=== PATIENT | female | born 1945 | race Caucasian/White ===

== ENCOUNTER 2021-06-07 19:55 | Inpatient (IN) ==
[2021-06-07 20:23] LABS: Basophils # (auto) 0.03 K/uL (0-0.2); Basophils % (auto) 0.2 %; Hematocrit (blood only) 52.4 % (37-47); Hemoglobin 16.5 g/dL (12.0-16.0); Immature Granulocytes # (auto) 0.07 K/uL (0.00-0.02); Immature Granulocytes % (auto) 0.4 %; Lymphocytes # (auto) 1.34 K/uL (1.2-3.4); Lymphocytes % (auto) 8.4 %; Mean Corpuscular Hemoglobin 32.3 pg (25-34); Mean Corpuscular Hgb Conc 31.5 g/dL (32-36); Mean Corpuscular Volume 102.5 fL (80-100); Mean Platelet Volume 9.9 fL (7.4-10.4); Monocytes # (auto) 0.93 K/uL (0.11-0.59); Monocytes % (auto) 5.8 %; Neutrophils # (auto) 13.65 K/uL (1.4-6.5); Neutrophils % (auto) 85.2 %; Platelet Count 331 K/uL (130-400); RDW Coefficient of Variation 14.3 % (11.5-14.5); RDW Standard Deviation 53.8 fL (36.4-46.3); Red Blood Count 5.11 M/uL (4.2-5.4); White Blood Count 16.02 K/uL (4.8-10.8)
[2021-06-07 20:46] LABS: Albumin Globulin Ratio 1.3 (0.9-2); Albumin Level 3.9 gm/dl (3.4-5.0); BUN Creatinine Ratio 31.5 (10-20); Bilirubin,Total 0.6 mg/dl (0.2-1.0); Calcium 10.3 mg/dl (8.5-10.1); Est GFR (African American) 73.5 ml/min; Est GFR (Non-African American) 63.4 ml/min; Globulin 3.1 gm/dl (2.5-4.0); Magnesium 1.7 mg/dl (1.7-2.4); Phosphorus 3.6 mg/dl (2.5-4.9); Potassium 3.8 mmol/L (3.5-5.1)
[2021-06-07 20:48] LABS: Troponin I 0.04 ng/ml (0-0.04)
[2021-06-07] MEDS ORDERED: ALBUT/IPRATROP 3MG/0.5MG NEB 3 ML VIAL NEB STA (20:51)
[2021-06-07] MEDS ORDERED: SODIUM CHLORIDE 0.9% 500 ML IV ONE (20:51)
[2021-06-07] MEDS ORDERED: dexAMETHasone**PF** 10 MG/ML VIAL IV ONE (20:51)
[2021-06-07] MEDS ORDERED: guaiFENesin 600 MG TABCR PO STA (20:51)
--- NOTE | 2021-06-07 21:09 | XRay Report ---
XR chest 1V portable CLINICAL HISTORY: Atypical chest pain TECHNIQUE: Single frontal radiograph of the chest was obtained. Comparison: None available at the time of this dictation. FINDINGS: No lines and tubes are seen. Cardiomegaly is noted. There is suggestion of emphysematous changes. No airspace opacities are seen. No evidence of pleural effusion or pneumothorax. IMPRESSION: No acute chest disease. ACT 112: Negative or not required by law. Electronically signed by: Bunny Mccarty M.D. 06/07/2021 9:08 PM
[2021-06-07 21:29] LABS: Influenza A virus by PCR Negative (Negative); Influenza B virus by PCR Negative (Negative)
[2021-06-07] MEDS ORDERED: MAGNESIUM SULFATE / D5W 1 GM/100 ML BAG IV ONE (22:22)
--- NOTE | 2021-06-07 23:30 | Emergency Department Note ---
Impression & Plan Hypoxia, COVID-19, COPD with acute exacerbation ED Provider Note NAME: GARY COLLAZO AGE: 75 SEX: F ARRIVES VIA: Ambulance INFORMANT: Patient ED PROVIDER(S): Isauro Henriquez MD CHIEF COMPLAINT: SOB PLAN: Disposition: Admit MEDICAL DECISION MAKING: The patient is a pleasant 75-year-old woman with a past medical history of COPD who presents to the emergency department accompanied by her daughter for evaluation of worsening shortness of breath over the past couple of days with confusion that worsened today where she was found to be 50% on room air by EMS. She was initially placed on 6 L and titrated down to 4 L where she was in the mid 90s. She reports she has been using her inhalers. She reports she has had cough, congestion over the past couple of days. She is not vaccinated for COVID-19 but she denies any known COVID-19 exposures. She has had some loose stool. She denies nausea or vomiting. She has had decreased appetite however. She complains of dry mouth. On arrival the patient is fatigued appearing, cachectic but in no acute distress, afebrile with heart rate in the 100s and vital signs otherwise stable. Her O2 saturation will decline to the mid 80s on room air. She was placed back on nasal cannula. She appears clinically dry. She has diminished breath sounds bilaterally with underlying wheeze. EKG without overt acute ischemia. Chest x-ray negative for acute cardiopulmonary process. WBC 16K, nonspecific. H/H 16.5/52.4 without prior values for comparison but in the setting of the patient's COPD and so may reflect a component of chronic hypoxia. Platelets within normal limits. Chemistry without metabolic acidosis. Carbon is 36 suggestive of component of chronic hypercapnia. BUN/Creatinine> 30 consistent with patient's clinically dry appearance. Troponin 0.04, within normal limits. BNP 500 prior values for comparison. COVID-19 RNA, NAAT test was positive. Influenza PCR was negative. Procalcitonin was not significantly elevated at 0.08. Given the patient's hypoxia in the setting of suspected early acute COVID-19 infection will to proceed with admission Case was discussed with Dr. Marvin, [facility] hospitalist, who will evaluate the patient for admission. Triage Nursing notes reviewed and agree them. Prior medical records reviewed Vital Signs: reviewed and remarkable for hypoxia. Differential diagnosis: Reactive airway disease, pneumonia, pneumothorax, COPD, CHF, infections, cardiac ischemia, pulmonary embolism, musculoskeletal, gastrointestinal, as well as other pathologies. ER treatment provided: See below. Diagnostics interpreted by me: ECG: Normal sinus rhythm, 99 bpm, no ectopy, nonspecific ST and T wave abnormality, no overt ST elevation, QTC 444, QRS 82. Cardiac Monitoring: An order for continuous cardiac monitoring was placed and demonstrated normal sinus rhythm, 99 bpm, no ectopy. Laboratory studies: See below Imaging studies: See below Consultation(s): Case was discussed with Dr. Marvin, [facility] hospitalist, who will evaluate the patient for admission. HPI: The patient is a pleasant 75-year-old woman with a past medical history of COPD who presents to the emergency department accompanied by her daughter for evaluation of worsening shortness of breath over the past couple of days with confusion that worsened today where she was found to be 50% on room air by EMS. She was initially placed on 6 L and titrated down to 4 L where she was in the mid 90s. She reports she has been using her inhalers. She reports she has had cough, congestion over the past couple of days. She is not vaccinated for COVID-19 but she denies any known COVID-19 exposures. She has had some loose stool. She denies nausea or vomiting. She has had decreased appetite however. She complains of dry mouth. ROS: See above HPI for pertinent positives & negatives. A total of 10 systems reviewed and were otherwise negative. PAST MEDICAL HISTORY:See Below PAST SURGICAL HISTORY:See Below FAMILY HISTORY:See Below SOCIAL HISTORY:See Below HOME MEDICATIONS:See Below ALLERGIES:See Below VITALS:See Below PHYSICAL EXAMINATION: GENERAL: Awake, alert, fatigued/cachectic-appearing, in no distress HENT: Normocephalic, atraumatic. Oropharynx with dry mucous membranes and otherwise unremarkable. EYES: Normal conjunctiva. Sclera non-icteric. NECK: Supple. No nuchal rigidity. FROM. No JVD. RESPIRATORY: Diminished breath sounds bilaterally with underlying wheeze. CARDIAC: Regular rate, normal rhythm. Extremities warm and well perfused. Pulses equal. ABDOMEN: Soft, non-distended. No tenderness to palpation. No rebound or guarding. No masses. RECTAL: Deferred. MUSCULOSKELETAL: Chest examination reveals no tenderness. The back is symmetrical on inspection without obvious abnormality. There is no CVA tenderness to palpation. No joint edema. LOWER EXTREMITIES: Calves are equal size bilaterally and non-tender. No edema. No discoloration. NEURO: Normal sensorium. No sensory or motor deficits noted. SKIN: No rash or jaundice noted. Isauro Henriquez MD Past Med/Surg History Medical History COPD (chronic obstructive pulmonary disease) Hypertension Restless leg syndrome Family History Other Family history non-contributory Social History Smoking Status: Current every day smoker Allergies Allergies Allergy/AdvReac Type Severity Reaction Status Date / Time No Known Allergies Allergy Verified 06/07/21 21:25 Home Meds Home Medications Medication Instructions Recorded Confirmed albuterol sulfate 90 mcg/actuation 2 puff INHALATION DIRECTED PRN 06/07/21 06/07/21 aerosol inhaler (Ventolin HFA) aspirin 81 mg chewable tablet 81 mg PO DAILY 06/07/21 06/07/21 calcium carbonate 200 mg calcium 200 - 400 mg PO DIRECTED PRN 06/07/21 06/07/21 (500 mg) chewable tablet (Tums) cholecalciferol (vitamin D3) 25 1,000 mcg PO DAILY 06/07/21 06/07/21 mcg (1,000 unit) capsule (Vitamin D3) metoprolol succinate 50 mg 50 mg PO DAILY 06/07/21 06/07/21 tablet,extended release 24 hr tiotropium bromide 2.5 2 puff INHALATION DAILY 06/07/21 06/07/21 mcg/actuation mist for inhalation (Spiriva Respimat) Results & Data (ED) Vital Signs Vital Signs - 24 hr 06/07/21 20:02 06/07/21 20:12 06/07/21 20:34 Temperature 36.9 C 36.9 C Temperature Source Oral Oral Pulse Rate 99 H Pulse Rate [Right Finger] 100 H Pulse Rhythm Regular Pulse Rhythm [Right Finger] Regular Pulse Strength Normal Pulse Strength [Right Finger] Normal Respiratory Rate 20 20 Respiratory Effort / Characteristics Spontaneous Spontaneous Respiratory Depth Normal Normal Respiratory Pattern Regular Regular Blood Pressure 157/95 H Blood Pressure [Right Arm] 157/95 H Blood Pressure Mean 115 Blood Pressure Mean [Right Arm] 115 Blood Pressure Position Sitting Blood Pressure Position [Right Arm] Sitting Pulse Oximetry 97 88 L 93 Oxygen Delivery Method Nasal Cannula Room Air Room Air Oxygen Flow Rate 2 Sepsis Recent Fever Within 48 Hours No Sepsis New/Unexplained Change in Mental Status No Sepsis Action Taken by Nursing No Action Required 06/07/21 22:00 06/08/21 00:00 Temperature Temperature Source Pulse Rate Pulse Rate [Right Finger] 99 H 98 H Pulse Rhythm Pulse Rhythm [Right Finger] Regular Regular Pulse Strength Pulse Strength [Right Finger] Normal Normal Respiratory Rate 22 21 Respiratory Effort / Characteristics Non-Labored Non-Labored Spontaneous Respiratory Depth Normal Normal Respiratory Pattern Blood Pressure Blood Pressure [Right Arm] Blood Pressure Mean Blood Pressure Mean [Right Arm] Blood Pressure Position Blood Pressure Position [Right Arm] Pulse Oximetry 93 96 Oxygen Delivery Method Nasal Cannula Nasal Cannula Oxygen Flow Rate 2 2 Sepsis Recent Fever Within 48 Hours Sepsis New/Unexplained Change in Mental Status Sepsis Action Taken by Nursing Laboratory Data Attestation: I reviewed the patient's lab results. Result diagrams: 06/07/21 20:10 06/07/21 20:10 Lab Results 06/07/21 06/07/21 06/07/21 Range/Units 20:10 20:10 20:10 WBC 16.02 H (4.8-10.8) K/uL RBC 5.11 (4.2-5.4) M/uL Hgb 16.5 H (12.0-16.0) g/dL Hct 52.4 H (37-47) % MCV 102.5 H (80-100) fL MCH 32.3 (25-34) pg MCHC 31.5 L (32-36) g/dL RDW Std Deviation 53.8 H (36.4-46.3) fL RDW Coeff of Adriana 14.3 (11.5-14.5) % Plt Count 331 (130-400) K/uL MPV 9.9 (7.4-10.4) fL Immature Gran % (Auto) 0.4 % Neut % (Auto) 85.2 % Lymph % (Auto) 8.4 % [place] % (Auto) 5.8 % Eos % (Auto) 0.0 % Baso % (Auto) 0.2 % Neut # (Auto) 13.65 H (1.4-6.5) K/uL Lymph # (Auto) 1.34 (1.2-3.4) K/uL [place] # (Auto) 0.93 H (0.11-0.59) K/uL Eos # (Auto) 0.00 (0-0.5) K/uL Baso # (Auto) 0.03 (0-0.2) K/uL Immature Gran # (Auto) 0.07 H (0.00-0.02) K/uL Sodium 142 (136-145) mmol/L Potassium 3.8 (3.5-5.1) mmol/L Chloride 101 (98-107) mmol/L Carbon Dioxide 36 H (21-32) mmol/L Anion Gap 5 (3-11) BUN 28 H (6-23) mg/dl Creatinine 0.89 (0.6-1.2) mg/dl Est Cr Clr Drug Dosing 36.0 ml/min Est GFR ( Amer) 73.5 ml/min Est GFR (Non-Af Amer) 63.4 ml/min BUN/Creatinine Ratio 31.5 H (10-20) Glucose 202 H (70-99(Fasting)) mg/dl Calcium 10.3 H (8.5-10.1) mg/dl Phosphorus 3.6 (2.5-4.9) mg/dl Magnesium 1.7 (1.7-2.4) mg/dl Total Bilirubin 0.6 (0.2-1.0) mg/dl AST 24 (13-39) U/L ALT 21 (7-52) U/L Alkaline Phosphatase 70 (34-104) U/L Troponin I 0.04 (0-0.04) ng/ml B-Natriuretic Peptide (0-100) pg/ml Total Protein 7.0 (6.0-8.3) gm/dl Albumin 3.9 (3.4-5.0) gm/dl Globulin 3.1 (2.5-4.0) gm/dl Albumin/Globulin Ratio 1.3 (0.9-2) Lipase 17 (11-82) U/L Procalcitonin (0-0.5) ng/ml Influ A Molecular Assay Negative (Negative) Influ B Molecular Assay Negative (Negative) SARS-CoV-2, RNA, NAAT (NEGATIVE) 02/06/07/21 06/07/21 Range/Units 20:10 20:40 21:19 WBC (4.8-10.8) K/uL RBC (4.2-5.4) M/uL Hgb (12.0-16.0) g/dL Hct (37-47) % MCV (80-100) fL MCH (25-34) pg MCHC (32-36) g/dL RDW Std Deviation (36.4-46.3) fL RDW Coeff of Adriana (11.5-14.5) % Plt Count (130-400) K/uL MPV (7.4-10.4) fL Immature Gran % (Auto) % Neut % (Auto) % Lymph % (Auto) % [place] % (Auto) % Eos % (Auto) % Baso % (Auto) % Neut # (Auto) (1.4-6.5) K/uL Lymph # (Auto) (1.2-3.4) K/uL [place] # (Auto) (0.11-0.59) K/uL Eos # (Auto) (0-0.5) K/uL Baso # (Auto) (0-0.2) K/uL Immature Gran # (Auto) (0.00-0.02) K/uL Sodium (136-145) mmol/L Potassium (3.5-5.1) mmol/L Chloride (98-107) mmol/L Carbon Dioxide (21-32) mmol/L Anion Gap (3-11) BUN (6-23) mg/dl Creatinine (0.6-1.2) mg/dl Est Cr Clr Drug Dosing ml/min Est GFR ( Amer) ml/min Est GFR (Non-Af Amer) ml/min BUN/Creatinine Ratio (10-20) Glucose (70-99(Fasting)) mg/dl Calcium (8.5-10.1) mg/dl Phosphorus (2.5-4.9) mg/dl Magnesium (1.7-2.4) mg/dl Total Bilirubin (0.2-1.0) mg/dl AST (13-39) U/L ALT (7-52) U/L Alkaline Phosphatase (34-104) U/L Troponin I (0-0.04) ng/ml B-Natriuretic Peptide 518 H (0-100) pg/ml Total Protein (6.0-8.3) gm/dl Albumin (3.4-5.0) gm/dl Globulin (2.5-4.0) gm/dl Albumin/Globulin Ratio (0.9-2) Lipase (11-82) U/L Procalcitonin 0.08 (0-0.5) ng/ml Influ A Molecular Assay (Negative) Influ B Molecular Assay (Negative) SARS-CoV-2, RNA, NAAT POSITIVE A* (NEGATIVE) Administered Medications Remdesivir 200 mg/ Sodium (Chloride) 250 mls @ 125 mls/hr IV ONE STA; Protocol Stop: 06/08/21 01:50 Last Admin: 06/08/21 00:18 Dose: 125 mls/hr Documented by: [id number] Discontinued Medications Albuterol (Albut/Ipratrop 3mg/0.5mg Neb 3 Ml Vial) 3 ml NEB NOW STA; Protocol Stop: 06/07/21 20:52 Last Admin: 06/07/21 21:05 Dose: 3 ml Documented by: [id number] Dexamethasone Sodium Phosphate (DexamethasonePf 10 Mg/Ml Vial) 10 mg IV NOW ONE Stop: 06/07/21 20:52 Last Admin: 06/07/21 21:05 Dose: 10 mg Documented by: [id number] Guaifenesin (Guaifenesin 600 Mg Tabcr) 600 mg PO NOW STA Stop: 06/07/21 20:52 Last Admin: 06/07/21 21:05 Dose: 600 mg Documented by: [id number] Sodium Chloride (Nss) 500 mls @ 999 mls/hr IV .Q31M ONE Stop: 06/07/21 21:21 Last Infusion: 06/07/21 21:45 Dose: 0 mls/hr Documented by: [id number] Admin: 06/07/21 21:10 Dose: 999 mls/hr Documented by: [id number] Magnesium Sulfate/Dextrose (Magnesium Sulfate / D5w) 1 gm in 100 mls @ 50 mls/hr IV ONE ONE Stop: 06/08/21 00:21 Last Admin: 06/07/21 22:52 Dose: Not Given Documented by: [id number] Imaging Data Radiologist's Impression: Chest X-Ray 06/07/21 20:12 XR chest 1V portable CLINICAL HISTORY: Atypical chest pain TECHNIQUE: Single frontal radiograph of the chest was obtained. Comparison: None available at the time of this dictation. FINDINGS: No lines and tubes are seen. Cardiomegaly is noted. There is suggestion of emphysematous changes. No airspace opacities are seen. No evidence of pleural effusion or pneumothorax. IMPRESSION: No acute chest disease. ACT 112: Negative or not required by law. Electronically signed by: Bunny Mccarty M.D. 06/07/2021 9:08 PM Discharge Plan Visit Data Chief Complaint: Shortness of Breath/Dyspnea Stated Complaint: SOB ED Provider: Isauro Henriquez Discharge Problem: Hypoxia, COVID-19, COPD with acute exacerbation Forms Stand Alone Forms: My [facility] [place] Prescriptions Prescriptions: No Action calcium carbonate [Tums] 200 mg calcium (500 mg) Tablet,Chewable 200 - 400 mg PO DIRECTED PRN (Reason: HEARTBURN/INDIGESTION) RF: 0 albuterol sulfate [Ventolin HFA] 90 mcg/actuation Hfa Aerosol Inhaler 2 puff INHALATION DIRECTED PRN (Reason: Shortness Of Breath Or Wheezing) RF: 0 cholecalciferol (vitamin D3) [Vitamin D3] 25 mcg (1,000 unit) Capsule 1,000 mcg PO DAILY RF: 0 metoprolol succinate 50 mg tablet extended release 24 hr 50 mg PO DAILY RF: 0 aspirin 81 mg tablet,chewable 81 mg PO DAILY RF: 0 Spiriva Respimat 2.5 mcg/actuation mist 2 puff INHALATION DAILY RF: 0 Referrals Referrals: Mima Hebert [Primary Care Provider] -
[2021-06-07] MEDS ORDERED: REMDESIVIR 200 MG in SODIUM CHLORIDE 0.9% 210 ML IV STA (23:51)
--- NOTE | 2021-06-07 23:52 | History & Physical Report ---
Date of Service June 07, 2021 Assessment & Plan (1) COVID-19: Plan: COVID-19 infection/COPD exacerbation with hypoxia- Patient noted to be in the 50s on room air by EMS at home, and in the mid 80s in the ED Received dexamethasone 10 mg IV from the ED Continue dexamethasone 6 mg IV daily Remdesivir IV per protocol Duonebs every 4 hours while awake and every 2 hours when necessary. Vitamin D 5000 international units p.o. daily Azithro azithromycin 500 mg IV daily (2) COPD with acute exacerbation: Plan: See above (3) Hypoxia: Plan: Nasal cannula oxygen, titrate to keep pulse ox 92-94% (4) Hypertension: Plan: Continue metoprolol succinate (5) Encephalopathy: Plan: Patient reportedly appears confused, per her daughter. May be directly related to COVID-19 and/or hypoxia of head negative (6) Tobacco use disorder: Plan: Tobacco cessation counseling (7) Restless leg syndrome: Plan: Patient reports that she use Aspercreme at home Do a trial of clonazepam 0.5 mg due to its rapidity of onset Check lower extremity arterial Dopplers to assess for possible PAD/thromboangiitis obliterans Tobacco cessation recommended (8) Hyperglycemia: Plan: Glucose 202 upon admission Not on any diabetic medications Check hemoglobin A1c [place] Accu-Cheks before meals and at bedtime with NovoLog coverage per scale History of Present Illness Chief Complaint: The patient presents to the emergency department with complaint of worsening shortness of breath and nausea over the past several days, and her daughter notices worsening confusion during that time as well. She was noted to be 50% on room air when initially assessed by EMS at home Primary Care Provider: Mima Hebert The patient is a 75-year-old female with a past medical history including COPD, restless leg syndrome and hypertension, who presents with symptoms as noted above. She continues to smoke about 1 pack daily. She reports that her less restless legs is bothering her significantly more at this time as well Evaluation in the emergency department revealed a pulse ox in the mid 80s, improved to 93% on 2 L nasal cannula. Chest x-ray was normal. COVID-19 testing was positive. Patient received from the ED the following: Dexamethasone 10 mg IV, NSS 500 mL bolus, guaifenesin 600 mg p.o., DuoNeb x1, and magnesium 1 g IV. Allergies Allergy/AdvReac Type Severity Reaction Status Date / Time No Known Allergies Allergy Verified 06/07/21 21:25 Home Medications Medication Instructions Recorded Confirmed Type albuterol sulfate 90 mcg/actuation 2 puff INHALATION DIRECTED PRN 06/07/21 06/07/21 History aerosol inhaler (Ventolin HFA) aspirin 81 mg chewable tablet 81 mg PO DAILY 06/07/21 06/07/21 History calcium carbonate 200 mg calcium 200 - 400 mg PO DIRECTED PRN 06/07/21 06/07/21 History (500 mg) chewable tablet (Tums) cholecalciferol (vitamin D3) 25 1,000 mcg PO DAILY 06/07/21 06/07/21 History mcg (1,000 unit) capsule (Vitamin D3) metoprolol succinate 50 mg 50 mg PO DAILY 06/07/21 06/07/21 History tablet,extended release 24 hr tiotropium bromide 2.5 2 puff INHALATION DAILY 06/07/21 06/07/21 History mcg/actuation mist for inhalation (Spiriva Respimat) Past Med/Surg History Medical History (Updated 06/08/21 @ 01:41 by Thony Marvin MD) COPD (chronic obstructive pulmonary disease) Hypertension Restless leg syndrome Tobacco use disorder Family History (Updated 06/07/21 @ 23:29 by Isauro Henriquez MD) Other Family history non-contributory Social History (Updated 06/07/21 @ 23:29 by Isauro Henriquez MD) Smoking Status: Current every day smoker Review of Systems Review of Systems: The patient denies chest pain, palpitations, lower extremity swelling, fevers, chills, sweats, vomiting, diarrhea , constipation, abdominal pain, pelvic pain, blood in urine or stool, dysuria, urinary frequency or urgency, lightheadedness, dizziness, headache, loss of consciousness, rash, abnormal bruising or bleeding, imbalance, focal or generalized weakness, numbness or tingling in arms, gener alized arthralgias or myalgias, back or neck pain, or night sweats. The review of systems is otherwise negative other than for that already noted above, and at least 10 systems have been reviewed. Physical Exam Physical Exam: The patient is awake, alert and oriented 3, well developed and well nourished, normocephalic and atraumatic, lying in bed and in no acute distress. HEENT--PERRL, EOMI, mucous membranes and oropharynx dry. Neck--supple. No JVD. No bruits. Thyroid normal, trachea midline, no bryan opathy. Heart--normal S1 and S2. No murmurs, rubs or gallops. Lungs--coarse breath sounds bilaterally with scattered wheezes. No respiratory distress, no accessory muscle use. Abdomen--normal bowel sounds and soft. Nontender. Nondistended, no hernias or masses, no organomegaly. Extremities--no cyanosis or clubbing. No edema. There are good distal pulses b/l. Dermatologic--normal skin turgor, normal color, no abnormal lymph nodes, no rash. Neurologic--cranial nerves II through XII grossly intact. Rheumatologic--normal range of motion. Psychiatric--normal affect. Results & Data Results & Data ([facility]) Vital Signs (Past 12 Hours) Vital Signs Temp Pulse Pulse Resp BP BP Pulse Ox 06/07/21 22:00 99 H 22 93 06/07/21 20:34 36.9 C 100 H 20 157/95 H 93 06/07/21 20:02 36.9 C 99 H 20 157/95 H 97 Laboratory Results Laboratory Results WBC 16.02 K/uL (4.8-10.8) H 06/07/21 20:10 RBC 5.11 M/uL (4.2-5.4) 06/07/21 20:10 Hgb 16.5 g/dL (12.0-16.0) H 06/07/21 20:10 Hct 52.4 % (37-47) H 06/07/21 20:10 MCV 102.5 fL (80-100) H 06/07/21 20:10 MCH 32.3 pg (25-34) 06/07/21 20:10 MCHC 31.5 g/dL (32-36) L 06/07/21 20:10 RDW Std Deviation 53.8 fL (36.4-46.3) H 06/07/21 20:10 RDW Coeff of Adriana 14.3 % (11.5-14.5) 06/07/21 20:10 Plt Count 331 K/uL (130-400) 06/07/21 20:10 MPV 9.9 fL (7.4-10.4) 06/07/21 20:10 Immature Gran % (Auto) 0.4 % 06/07/21 20:10 Neut % (Auto) 85.2 % 06/07/21 20:10 Lymph % (Auto) 8.4 % 06/07/21 20:10 [place] % (Auto) 5.8 % 06/07/21 20:10 Eos % (Auto) 0.0 % 06/07/21 20:10 Baso % (Auto) 0.2 % 06/07/21 20:10 Neut # (Auto) 13.65 K/uL (1.4-6.5) H 06/07/21 20:10 Lymph # (Auto) 1.34 K/uL (1.2-3.4) 06/07/21 20:10 [place] # (Auto) 0.93 K/uL (0.11-0.59) H 06/07/21 20:10 Eos # (Auto) 0.00 K/uL (0-0.5) 06/07/21 20:10 Baso # (Auto) 0.03 K/uL (0-0.2) 06/07/21 20:10 Immature Gran # (Auto) 0.07 K/uL (0.00-0.02) H 06/07/21 20:10 Sodium 142 mmol/L (136-145) 06/07/21 20:10 Potassium 3.8 mmol/L (3.5-5.1) 06/07/21 20:10 Chloride 101 mmol/L (98-107) 06/07/21 20:10 Carbon Dioxide 36 mmol/L (21-32) H 06/07/21 20:10 Anion Gap 5 (3-11) 06/07/21 20:10 BUN 28 mg/dl (6-23) H 06/07/21 20:10 Creatinine 0.89 mg/dl (0.6-1.2) 06/07/21 20:10 Est Cr Clr Drug Dosing 36.0 ml/min 06/07/21 20:10 Est GFR ( Amer) 73.5 ml/min 06/07/21 20:10 Est GFR (Non-Af Amer) 63.4 ml/min 06/07/21 20:10 BUN/Creatinine Ratio 31.5 (10-20) H 06/07/21 20:10 Glucose 202 mg/dl (70-99(Fasting)) H 06/07/21 20:10 Calcium 10.3 mg/dl (8.5-10.1) H 06/07/21 20:10 Phosphorus 3.6 mg/dl (2.5-4.9) 06/07/21 20:10 Magnesium 1.7 mg/dl (1.7-2.4) 06/07/21 20:10 Total Bilirubin 0.6 mg/dl (0.2-1.0) 06/07/21 20:10 AST 24 U/L (13-39) 06/07/21 20:10 ALT 21 U/L (7-52) 06/07/21 20:10 Alkaline Phosphatase 70 U/L (34-104) 06/07/21 20:10 Troponin I 0.04 ng/ml (0-0.04) 06/07/21 20:10 B-Natriuretic Peptide 518 pg/ml (0-100) H 06/07/21 21:19 Total Protein 7.0 gm/dl (6.0-8.3) 06/07/21 20:10 Albumin 3.9 gm/dl (3.4-5.0) 06/07/21 20:10 Globulin 3.1 gm/dl (2.5-4.0) 06/07/21 20:10 Albumin/Globulin Ratio 1.3 (0.9-2) 06/07/21 20:10 Lipase 17 U/L (11-82) 06/07/21 20:10 Procalcitonin 0.08 ng/ml (0-0.5) 06/07/21 20:10 Influ A Molecular Assay Negative (Negative) 06/07/21 20:10 Influ B Molecular Assay Negative (Negative) 06/07/21 20:10 SARS-CoV-2, RNA, NAAT POSITIVE (NEGATIVE) A* 06/07/21 20:40 Impressions Chest X-Ray 06/07/21 20:12 XR chest 1V portable CLINICAL HISTORY: Atypical chest pain TECHNIQUE: Single frontal radiograph of the chest was obtained. Comparison: None available at the time of this dictation. FINDINGS: No lines and tubes are seen. Cardiomegaly is noted. There is suggestion of emphysematous changes. No airspace opacities are seen. No evidence of pleural effusion or pneumothorax. IMPRESSION: No acute chest disease. ACT 112: Negative or not required by law. Electronically signed by: Bunny Mccarty M.D. 06/07/2021 9:08 PM Diagnostic Findings [facility] Patient: GARY COLLAZO (Female) : 45 Status: ER Date: 06/07/21 23:12 Room #: History: ams covid + best images, pt confused unable to hold still Slices: 66 Priors: Tech: Caity Jade @ [phone] Exams: CT HEAD Contrast: Accession Numbers: [id number] Referring Physician: REFERRED SELF Preliminary Findings Only See Final Report For Complete Findings CT HEAD: No acute intracranial hemorrhage, extra-axial fluid collection or mass-effect. No CT evidence of acute territorial infarct. Patchy areas of hypoattenuation throughout the supratentorial white matter are nonspecific, but often seen in the setting of chronic microvascular ischemic disease. Air-fluid level in the left maxillary sinus, which could be correlated for possible acute sinusitis. Radiologist: Ashley Gusman M.D. Study ready at 23:16 and initial results transmitted at 23:27 *This report constitutes a preliminary interpretation only. Non-acute findings felt to be unrelated to the clinical presentation may not be discussed in this report. The study will be interpreted and a final report will be generated by the local Radiologist the following shift. To reach the hospital radiology department call [phone]. If a discrepancy is found between the preliminary and final interpretations of this study, please notify us via our Client Portal at [email or web address], under QA Exams. You can also fax this report with a description of the discrepancy, or include the final report, to our daytime fax number [phone]. If faxing, please indicate the severity of discrepancy using one of the following categories: [ ] 1 - Agree/Informational [ ] 2 - Unlikely to Affect Management [ ] 3 - Possible Eventual Change of Management [ ] 4 - Probable Immediate Change of Management For all other patient related information, please fax us at [phone]. [id number] Code Status & VTE Plan Code Status Full code VTE Prophylaxis Plan VTE Prophylaxis will be ordered: Yes PG Care Time/CCT Total # of Minutes Spent Total Time Spent with Patient: Total time spent is greater than 50% in coordination of care (as documented) at patient's floor/unit and/or counseling patient: Coding Level of Care Code 74645 Initial Inpt Care Lvl 3 Diagnoses Restless leg syndrome G25.81 Hypertension I10 Encephalopathy G93.40 COPD with acute exacerbation J44.1 COVID-19 U07.1 Hypoxia R09.02 Tobacco use disorder F17.200 Hyperglycemia R73.9
[2021-06-08] MEDS ORDERED: clonazePAM 0.5 MG TAB PO STA (01:21)
[2021-06-08] MEDS ORDERED: GLUCOSE 40% GEL 15 GM TUBE PO PRN (02:28)
[2021-06-08] MEDS ORDERED: GLUCOSE 10 TABS/TUBE PO PRN (02:28)
[2021-06-08] MEDS ORDERED: ACETAMINOPHEN 325 MG TAB PO PRN (02:28)
[2021-06-08] MEDS ORDERED: DEXTROSE 50% 50 ML SYRINGE IV PRN (02:28)
[2021-06-08] MEDS ORDERED: GLUCAGON FOR INJ 1 MG VIAL SQ PRN (02:28)
[2021-06-08] MEDS ORDERED: CARBOHYDRATES FOR HYPOGLYCEMIA PO PRN (02:28)
[2021-06-08] MEDS ORDERED: ONDANSETRON INJ 2 MG/ML 2 ML VIAL IV PRN (02:28)
[2021-06-08 05:56] LABS: Basophils # (auto) 0.04 K/uL (0-0.2); Basophils % (auto) 0.3 %; Hematocrit (blood only) 47.4 % (37-47); Hemoglobin 14.3 g/dL (12.0-16.0); Immature Granulocytes # (auto) 0.09 K/uL (0.00-0.02); Immature Granulocytes % (auto) 0.7 %; Lymphocytes % (auto) 5.2 %; Mean Corpuscular Hemoglobin 31.2 pg (25-34); Mean Corpuscular Hgb Conc 30.2 g/dL (32-36); Mean Corpuscular Volume 103.5 fL (80-100); Mean Platelet Volume 9.6 fL (7.4-10.4); Monocytes # (auto) 0.31 K/uL (0.11-0.59); Monocytes % (auto) 2.3 %; Neutrophils # (auto) 12.35 K/uL (1.4-6.5); Neutrophils % (auto) 91.5 %; Platelet Count 319 K/uL (130-400); RDW Coefficient of Variation 14.2 % (11.5-14.5); RDW Standard Deviation 53.9 fL (36.4-46.3); Red Blood Count 4.58 M/uL (4.2-5.4); White Blood Count 13.49 K/uL (4.8-10.8)
[2021-06-08 06:18] LABS: Troponin I < 0.03 ng/ml (0-0.04)
[2021-06-08 06:20] LABS: Alanine Aminotransferase 24 U/L (7-52); Albumin Globulin Ratio 1.3 (0.9-2); Albumin Level 3.3 gm/dl (3.4-5.0); Alkaline Phosphatase 62 U/L (34-104); Anion Gap 4 (3-11); Aspartate Aminotransferase 31 U/L (13-39); BUN Creatinine Ratio 28.2 (10-20); Bilirubin,Total 0.5 mg/dl (0.2-1.0); Blood Urea Nitrogen 22 mg/dl (6-23); Calcium 8.5 mg/dl (8.5-10.1); Carbon Dioxide 34 mmol/L (21-32); Chloride 105 mmol/L (98-107); Est GFR (African American) 86.2 ml/min; Est GFR (Non-African American) 74.4 ml/min; Globulin 2.6 gm/dl (2.5-4.0); Glucose 148 mg/dl (70-99(Fasting)); Magnesium 1.7 mg/dl (1.7-2.4); Potassium 4.5 mmol/L (3.5-5.1); Sodium 143 mmol/L (136-145); Total Protein 5.9 gm/dl (6.0-8.3)
--- NOTE | 2021-06-08 07:17 | CT Scan Report ---
HEAD CT NONCONTRAST CT DOSE: 749.40 mGy.cm HISTORY: Altered mental status. TECHNIQUE: Multiaxial CT images of the head were performed without the use of intravenous contrast. A utomated exposure control was utilized for this study. A dose lowering technique was utilized adheri ng to the principles of ALARA. Comparison: None. Findings: Fluid level within the left maxillary sinus resulting in partial opacification. There is mi ld mucosal thickening within the left ethmoid air cells. Motion artifact. The calvarium and skull bas e are intact. There is no mass, hematoma, midline shift, acute infarct. White matter hypodensity is n onspecific but suggestive of microvascular ischemic change. The ventricles and sulci demonstrate mild age-related involutional changes. 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 Impression: No acute intracranial abnormality. Atrophy and microvascular ischemic changes. Acute left maxillary s inusitis. ACT 112: Negative or not required by law. Electronically signed by: Vaughn Phan M.D. 06/08/2021 7:15 AM
[2021-06-08] MEDS: ALBUT/IPRATROP 3MG/0.5MG NEB 3 ML VIAL NEB SCH ×2 (07:25→10:42)
[2021-06-08 07:31] LABS: Estimated Average Glucose 126 mg/dl
--- NOTE | 2021-06-08 07:51 | Ultrasound Report ---
US arterial duplex LE RT CLINICAL HISTORY: Right lower extremity pain. COMPARISON STUDY: None. FINDINGS: The ankle brachial indices were not performed due to the portable study. Scattered calcifie d plaque seen throughout the right lower extremity arterial system. Normal biphasic waveforms and alley ocities seen within the right common femoral and proximal to mid superficial femoral arteries. Elevat ed peak velocity of 216 cm/s within the distal right superficial femoral artery likely secondary to t he calcified plaque with associated monophasic waveforms. Distal to this site the popliteal and calf arteries demonstrate monophasic but normal velocity waveforms. No evidence for arterial occlusion. IMPRESSION: 1. Focal area of hemodynamically significant stenosis seen within the distal right superficial femora l artery. 2. No evidence for arterial occlusion within the right lower extremity. ACT 112: Negative or not required by law. Electronically signed by: Vaughn Phan M.D. 06/08/2021 7:49 AM
[2021-06-08] MEDS: INSULIN ASPART PER UNIT SC SCH ×4 (08:43→20:04)
[2021-06-08] MEDS: guaiFENesin 600 MG TABCR PO SCH ×2 (09:04→20:03)
[2021-06-08] MEDS: ASPIRIN 81 MG ECTAB PO SCH (09:05)
[2021-06-08] MEDS: CHOLECALCIFEROL 5,000 UNITS 125 MCG TAB PO SCH (09:05)
[2021-06-08] MEDS: AZITHROMYCIN 500 MG in DEXTROSE 5% 250 ML IV SCH ×2 (09:05→11:49)
[2021-06-08] MEDS: METOPROLOL SUCC 50MG EXT REL TAB PO SCH (09:05)
[2021-06-08] MEDS: dexAMETHasone 6 MG in SYRINGE 0 ML IV SCH (09:06)
[2021-06-08] MEDS ORDERED: MAGNESIUM SULFATE / D5W 1 GM/100 ML BAG IV ONE (10:17)
[2021-06-08] MEDS ORDERED: FUROSEMIDE INJ 20 MG/2 ML VIAL IV ONE (10:50)
--- NOTE | 2021-06-08 11:12 | Hospitalist Progress Note ---
Date of Service June 08, 2021 Assessment & Plan (1) COVID-19: Plan: Attending: Dr. Vivas Impression: 75-year-old female with a history of tobacco abuse since teenage years. Patient lives alone and is independent with ADLs. She is nonvaccinated. Patient developed sore throat and cough approximately 2 weeks ago. Over the last several days she has developed a productive cough with green sputum. Family is unaware of any fever or rigors. Patient did have chills at home. Patient was brought into the emergency department and found to be hypoxic. She was started empirically on remdesivir, dexamethasone and supplemental oxygen. Currently she is in isolation for COVID-19. Recommendations: COVID-19: * Day #2 dexamethasone * Day #2 remdesivir * Check CRP and ferritin levels for inflammatory markers * Start patient on enoxaparin 40 mg subcu daily (GFR 74.4) * Check ABG (serum carbon dioxide 34 mmol/L)/we will also check VBG tomorrow with a.m. labs * Will give Lasix 20 mg IV x1 (maintain negative fluid balance) proBNP 518 * Patient was symptoms for approximate last 2 weeks. * Continue titrate supplemental oxygen to maintain SaO2 between 88 and 92% * Patient is unvaccinated * Patient would not desire to be intubated or have tracheostomy tube placed. Changed to DNR/DNI no resuscitation after discussion with sister and LEI Hardwick. (2) Hypomagnesemia: Plan: Patient's magnesium level is 1.7 on admission. She received 1 g of magnesium sulfate IV Repeat magnesium this morning is also 1.7. We will give an additional 1 g of magnesium sulfate and follow daily labs Other electrolytes are balanced (3) Encephalopathy: Plan: Patient received clonazepam at 1:20 AM Continues to remain somewhat lethargic CT head is negative Able to maintain airway Continue to monitor No neurological deficits other than lethargy (4) Hypoxia: Plan: Secondary to COPD exacerbation and COVID-19 Continue with supplemental oxygen to maintain SaO2 between 88 and 92% Continue to treat for COVID-19 Empiric azithromycin for COPD exacerbation (5) COPD (chronic obstructive pulmonary disease): Plan: Lifelong adult smoker (current everyday smoker) No evidence of pulmonary function testing Patient is prescribed Spiriva Respimat 2 puffs daily as well as albuterol as needed as an outpatient Chest x-ray with evidence of emphysema Continue to treat for possible exacerbation with azithromycin and dexamethasone Maintain SaO2 between 88 and 92% (6) Hyperglycemia: Plan: No history of diabetes mellitus Hemoglobin A1c is 6.0% Continue NovoLog sliding scale insulin due to intermediate acting dexamethasone for COVID-19 (7) Hypertension: Plan: Currently with systolic blood pressure of 144 Continue home medication including metoprolol succinate 50 mg p.o. daily Also gave one-time dose of furosemide 20 mg IV as listed above in #1 (8) Restless leg syndrome: Plan: Avoid benzodiazepines Continue to monitor (9) Tobacco use disorder: (10) DVT prophylaxis: Plan: Will initiate enoxaparin 40 mg subcutaneously daily Increase activity as tolerated Admission and Anticipated Discharge Date Admission Date: June 07, 2021 Supervising Physician Co-Signing Physician Notes PA Supervision Note: I did not personally see or examine the patient today, but I verified all angel points of MORRO Guajardo's assessment and plan with the following exceptions/addit ions: None Subjective Dr. Vivas Patient seen and examined in emergency room C 12 B. Patient is fairly nonresponsive. She does open her eyes with verbal and tactile stimuli. She is unable to give me history. She was given clonazepam overnight and has been lethargic since that time. Vital signs are stable with respiratory rate of 18 and a heart rate of 70. Patient is currently saturating 95% on Oxymask at 3 L/min. She has no evidence of acute distress from a respiratory standpoint. She is afebrile. I did call the patient's sister and LEI Hardwick. Patient apparently was sick over Matt and then got better. Then approximately 2 weeks ago she began having a sore throat. Since that time she has progressively had cold-like symptoms and over the last 2 to 3 days was noted to have productive cough with greenish type sputum. The patient is unvaccinated for Covid. She has no history of Covid. Is unclear where she had exposure. Patient was admitted last night and started on remdesivir. She also received 10 mg of IV dexamethasone. She is currently ordered 6 mg of IV dexamethasone daily. Patient has an extensive history of smoking since she was a teenager. According to the patient's sister she is still a current every day smoker. Chest x-ray reveals evidence of emphysema. Patient is prescribed Spiriva Respimat 2 puffs daily and albuterol rescue inhaler. No awareness of nebulizer treatment and no awareness of pulmonary following. No evidence of previous pulmonary function testing. The patient lives alone. Her sister Pia visits her daily. She also has another sister Frances (Marek) and a niece Nerissa. The patient reportedly still drives and is independent with living and ADLs. She does her own shopping, cooking, cleaning. The patient's 8 years ago. She has no children. Review of Systems Review of Systems: Unobtainable due to reduced consciousness Physical Exam Physical Exam: GENERAL : No acute distress. Patient lethargic. Opens eyes to loud verbal command. Also response to light sternal rub. EYES: No icterus, gaze conjugate. Pupils equal round and reactive to light NOSE: No evidence of epistaxis. Oxymask in place MOUTH: No lesions or candidiasis. Oxymask in place. Mucosa dry. NECK: Supple LUNGS: Diminished breath sounds bilaterally. Patient does have bilateral crackles as well as some upper field rhonchi. No appreciation of bronchospasm. HEART: Regular, rate controlled at 70 bpm ABDOMEN: Soft, NT, ND, BS Present EXTREMITIES: No LE edema, pedal pulses intact and equal bilaterally. Radial pulses also intact and equal. NEURO: Patient somewhat lethargic. Was given clonazepam at 01:02 she does open eyes to verbal command and light sternal rub. Unable to give history. Able to maintain airway. Pupils equal round and reactive to light. Patient does move all 4 limbs spontaneously. Results & Data Results & Data ([facility]) Vital Signs (Past 12 Hours) Vital Signs Temp Pulse Pulse Resp BP BP Pulse Ox 06/08/21 10:45 70 18 06/08/21 07:27 99 H 16 95 06/08/21 03:25 37.0 C 91 H 16 136/71 98 06/08/21 02:45 97 06/08/21 02:28 97 H 97 H 25 H 80 L 06/08/21 02:19 97 H 21 147/83 H 95 06/08/21 01:00 97 H 24 154/82 H 90 06/08/21 00:00 98 H 21 96 Critical Care Results & Data Vital Signs (Past 12 Hours) Vital Signs Temp Pulse Pulse Resp BP BP Pulse Ox 06/08/21 10:45 70 18 06/08/21 07:27 99 H 16 95 06/08/21 03:25 37.0 C 91 H 16 136/71 98 06/08/21 02:45 97 06/08/21 02:28 97 H 97 H 25 H 80 L 06/08/21 02:19 97 H 21 147/83 H 95 06/08/21 01:00 97 H 24 154/82 H 90 06/08/21 00:00 98 H 21 96 Lab & Micro Results (Past 24 Hours) RBC 4.58 M/uL (4.2-5.4) 06/08/21 WBC 13.49 K/uL (4.8-10.8) H 06/08/21 Hgb 14.3 g/dL (12.0-16.0) 06/08/21 Hct 47.4 % (37-47) H 06/08/21 MCV 103.5 fL (80-100) H 06/08/21 MCH 31.2 pg (25-34) 06/08/21 MCHC 30.2 g/dL (32-36) L 06/08/21 RDW Standard Deviation 53.9 fL (36.4-46.3) H 06/08/21 RDW Coefficient of Variation 14.2 % (11.5-14.5) 06/08/21 Plt Count 319 K/uL (130-400) 06/08/21 MPV 9.6 fL (7.4-10.4) 06/08/21 Neutrophils (%) (Auto) 91.5 % 06/08/21 Lymphocytes (%) (Auto) 5.2 % 06/08/21 Monocytes # (Auto) 0.31 K/uL (0.11-0.59) 06/08/21 Eosinophils # (Auto) 0.00 K/uL (0-0.5) 06/08/21 Immature Granulocyte % (Auto) 0.7 % 06/08/21 Neutrophils # (Auto) 12.35 K/uL (1.4-6.5) H 06/08/21 Lymphocytes # (Auto) 0.70 K/uL (1.2-3.4) L 06/08/21 Monocytes # (Auto) 0.31 K/uL (0.11-0.59) 06/08/21 Eosinophils # (Auto) 0.00 K/uL (0-0.5) 06/08/21 Basophils # (Auto) 0.04 K/uL (0-0.2) 06/08/21 Immature Granulocyte # (Auto) 0.09 K/uL (0.00-0.02) H 06/08/21 Na 143 mmol/L (136-145) 06/08/21 K 4.5 mmol/L (3.5-5.1) 06/08/21 Cl 105 mmol/L (98-107) 06/08/21 CO2 34 mmol/L (21-32) H 06/08/21 Anion Gap 4 (3-11) 06/08/21 BUN 22 mg/dl (6-23) 06/08/21 Creatinine 0.78 mg/dl (0.6-1.2) 06/08/21 Estimated GFR ( Amer) 86.2 ml/min 06/08/21 Estimated GFR (Non-Af Amer) 74.4 ml/min 06/08/21 BUN/Creatinine Ratio 28.2 (10-20) H 06/08/21 Glu 148 mg/dl (70-99(Fasting)) H 06/08/21 Ca 8.5 mg/dl (8.5-10.1) 06/08/21 Phosphorus Level 3.6 mg/dl (2.5-4.9) 06/07/21 Total Bilirubin 0.5 mg/dl (0.2-1.0) 06/08/21 AST 31 U/L (13-39) 06/08/21 ALT 24 U/L (7-52) 06/08/21 Alkaline Phosphatase 62 U/L (34-104) 06/08/21 TP 5.9 gm/dl (6.0-8.3) L 06/08/21 Albumin 3.3 gm/dl (3.4-5.0) L 06/08/21 Globulin 2.6 gm/dl (2.5-4.0) 06/08/21 Albumin/Globulin Ratio 1.3 (0.9-2) 06/08/21 Mg 1.7 mg/dl (1.7-2.4) 06/08/21 05:23 06/08/21 Calcium Level 8.5 mg/dl (8.5-10.1) 06/08/21 05:23 06/08/21 Blood Gas Barometric Pressure 730.3 mm/Hg 06/08/21 12:59 06/08/21 Arterial Blood pH 7.31 (7.35-7.45) L 06/08/21 12:59 06/08/21 Arterial Blood Partial Pressure CO2 74 mmHg (35-46) H 06/08/21 12:59 06/08/21 Arterial Blood Partial Pressure O2 55 mmHg (80-95) L 06/08/21 12:59 06/08/21 Arterial Blood HCO3 36 mmol/L (19-24) H 06/08/21 12:59 06/08/21 Arterial Blood Base Excess 6.7 mEq/L (-9-1.8) H 06/08/21 12:59 06/08/21 Arterial Blood Oxygen Saturation 88.0 % (90-95) L 06/08/21 12:59 06/08/21 Blood Gas Oxygen Given 3L 06/08/21 12:59 06/08/21 Enzo Test Pos (Pos) 06/08/21 12:59 06/08/21 Blood Gas Barometric Pressure 730.3 mm/Hg 06/08/21 12:59 06/08/21 Diagnostic Findings (Past 24 Hours) Chest X-Ray 06/07/21 20:12 XR chest 1V portable CLINICAL HISTORY: Atypical chest pain TECHNIQUE: Single frontal radiograph of the chest was obtained. Comparison: None available at the time of this dictation. FINDINGS: No lines and tubes are seen. Cardiomegaly is noted. There is suggestion of emphysematous changes. No airspace opacities are seen. No evidence of pleural effusion or pneumothorax. IMPRESSION: No acute chest disease. ACT 112: Negative or not required by law. Electronically signed by: Bunny Mccarty M.D. 06/07/2021 9:[address] 06/07/21 20:[address] DOSE: 749.40 mGy.cm HISTORY: Altered mental status. TECHNIQUE: Multiaxial CT images of the head were performed without the use of intravenous contrast. Automated exposure control was utilized for this study. A dose lowering technique was utilized adhering to the principles of ALARA. Comparison: None. Findings: Fluid level within the left maxillary sinus resulting in partial op acification. There is mild mucosal thickening within the left ethmoid air cells. Motion artifact. The calvarium and skull base are intact. There is no mass, hematoma, midline shift, acute infarct. White matter hypodensity is nonspecific but suggestive of microvascular ischemic change. The ventricles and sulci demonstrate mild age-related involutional changes. 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 Impression: No acute intracranial abnormality. Atrophy and microvascular ischemic changes. Acute left maxillary sinusitis. ACT 112: Negative or not required by law. Electronically signed by: Vaughn Phan M.D. 06/08/2021 7:15 AM Duplex Scan Lower Extremity Artery 06/08/21 01:34 US arterial duplex LE RT CLINICAL HISTORY: Right lower extremity pain. COMPARISON STUDY: None. FINDINGS: The ankle brachial indices were not performed due to the portable study. Scattered calcified plaque seen throughout the right lower extremity arterial system. Normal biphasic waveforms and velocities seen within the right common femoral and proximal to mid superficial femoral arteries. Elevated peak velocity of 216 cm/s within the distal right superficial femoral artery likely secondary to the calcified plaque with associated monophasic waveforms. Distal to this site the popliteal and calf arteries demonstrate monophasic but normal velocity waveforms. No evidence for arterial occlusion. IMPRESSION: 1. Focal area of hemodynamically significant stenosis seen within the distal right superficial femoral artery. 2. No evidence for arterial occlusion within the right lower extremity. ACT 112: Negative or not required by law. Electronically signed by: Vaughn Phan M.D. 06/08/2021 7:49 AM I & O Totals 24 Hours 06/07/21 06/08/21 06/09/21 06:59 06:59 06:59 Intake Total 900 / 900 Balance 900 / 900 Cumulative 06/07/21 19:48 thru 06/08/21 08:36 Intake Total 900 Balance 900 RT Ventilator Mngmt (Last Documented) Ventilator Ordered Settings Respiratory Rate 18 06/08/21 10:45 Ventilator - PT Measurements Respiratory Rate 18 PG Care Time/CCT Total # of Minutes Spent Total Time Spent with Patient: Total time spent is greater than 50% in coordination of care (as documented) at patient's floor/unit and/or counseling patient: 40 minutes including chart review, examination of patient, and discussion with family/POA Coding Level of Care Code 16851 Subseq Hosp Care Lvl 3 Diagnoses Encephalopathy G93.40 Hypoxia R09.02 COPD (chronic obstructive pulmonary disease) J44.9 Hyperglycemia R73.9 Hypertension I10 Restless leg syndrome G25.81 Tobacco use disorder F17.200 DVT prophylaxis Z29.9 COVID-19 U07.1 Hypomagnesemia E83.42 Time Spent (min) 40
[2021-06-08] MEDS: CHOLECALCIFEROL 1,000 UNITS 25 MCG TAB PO SCH (11:49)
--- NOTE | 2021-06-08 13:09 | Electrocardiogram Report ---
Test Reason : Blood Pressure : / mmHG Vent. Rate : 099 BPM Atrial Rate : 099 BPM P-R Int : 114 ms QRS Dur : 082 ms QT Int : 346 ms P-R-T Axes : 085 270 068 degrees QTc Int : 444 ms Poor data quality, interpretation may be adversely affected Normal sinus rhythm Possible Left atrial enlargement Nonspecific ST and T wave abnormality Abnormal ECG No previous ECGs available Confirmed by Moshe Elam ([id number]) on 06/08/2021 1:08:58 PM Referred By: REFERRED SELF Confirmed By:Moshe Elam
[2021-06-08 13:19] LABS: Base Excess ABG 6.7 mEq/L (-9-1.8); HCO3 ABG 36 mmol/L (19-24); PCO2 ABG 74 mmHg (35-46); PO2 ABG 55 mmHg (80-95); pH ABG 7.31 (7.35-7.45)
[2021-06-08 13:22] LABS: Allen Test Pos (Pos)
[2021-06-08] MEDS: ENOXAPARIN INJ 40 MG/0.4 ML SYR SQ SCH (13:27)
[2021-06-08 13:39] LABS: Troponin I 0.03 ng/ml (0-0.04)
[2021-06-08 13:57] LABS: Ferritin 50.7 ng/ml (8-388)
[2021-06-08] MEDS ORDERED: ALBUT/IPRATROP 3MG/0.5MG NEB 3 ML VIAL NEB PRN (14:06)
[2021-06-08] MEDS: UMECLIDINIUM BROMIDE 62.5MCG/BLISTER 7 PUFFS/INHALER INH SCH (15:16)
[2021-06-08] MEDS: REMDESIVIR 100 MG in SODIUM CHLORIDE 0.9% 230 ML IV SCH (20:03)
[2021-06-09 07:47] LABS: INR 1.1 (0.9-1.1); Partial Thromboplastin Time 28.2 Seconds (21.0-31.0); Prothrombin Time 11.9 Seconds (9.0-12.0)
[2021-06-09 07:49] LABS: Basophils # (auto) 0.05 K/uL (0-0.2); Basophils % (auto) 0.3 %; Hematocrit (blood only) 51.9 % (37-47); Hemoglobin 15.5 g/dL (12.0-16.0); Immature Granulocytes # (auto) 0.08 K/uL (0.00-0.02); Immature Granulocytes % (auto) 0.4 %; Lymphocytes % (auto) 11.7 %; Mean Corpuscular Hemoglobin 31.5 pg (25-34); Mean Corpuscular Hgb Conc 29.9 g/dL (32-36); Mean Corpuscular Volume 105.5 fL (80-100); Mean Platelet Volume 9.7 fL (7.4-10.4); Monocytes # (auto) 1.69 K/uL (0.11-0.59); Monocytes % (auto) 9.4 %; Neutrophils # (auto) 13.98 K/uL (1.4-6.5); Neutrophils % (auto) 78.2 %; Platelet Count 312 K/uL (130-400); RDW Coefficient of Variation 14.1 % (11.5-14.5); Red Blood Count 4.92 M/uL (4.2-5.4)
[2021-06-09] MEDS: AZITHROMYCIN 500 MG in DEXTROSE 5% 250 ML IV SCH (08:36)
[2021-06-09] MEDS: ASPIRIN 81 MG ECTAB PO SCH (08:36)
[2021-06-09] MEDS: guaiFENesin 600 MG TABCR PO SCH ×2 (08:37→21:49)
[2021-06-09] MEDS: ENOXAPARIN INJ 40 MG/0.4 ML SYR SQ SCH (08:37)
[2021-06-09] MEDS: CHOLECALCIFEROL 5,000 UNITS 125 MCG TAB PO SCH (08:37)
[2021-06-09] MEDS: CHOLECALCIFEROL 1,000 UNITS 25 MCG TAB PO SCH (08:37)
[2021-06-09] MEDS: dexAMETHasone 6 MG in SYRINGE 0 ML IV SCH (08:38)
[2021-06-09] MEDS: UMECLIDINIUM BROMIDE 62.5MCG/BLISTER 7 PUFFS/INHALER INH SCH (08:38)
[2021-06-09 08:39] LABS: Troponin I 0.04 ng/ml (0-0.04)
[2021-06-09 08:40] LABS: Albumin Globulin Ratio 1.2 (0.9-2); Albumin Level 3.1 gm/dl (3.4-5.0); BUN Creatinine Ratio 32.9 (10-20); Bilirubin,Total 0.4 mg/dl (0.2-1.0); Calcium 8.8 mg/dl (8.5-10.1); Creatinine Clr Calc Pharmacy 45.7 ml/min; Est GFR (African American) 98.2 ml/min; Est GFR (Non-African American) 84.8 ml/min; Globulin 2.5 gm/dl (2.5-4.0); Magnesium 1.7 mg/dl (1.7-2.4); Potassium 4.3 mmol/L (3.5-5.1); Total Protein 5.6 gm/dl (6.0-8.3)
[2021-06-09] MEDS: INSULIN ASPART PER UNIT SC SCH ×4 (08:54→21:43)
[2021-06-09 09:47] LABS: Base Excess VBG 10.3 mEq/L; HCO3 VBG 42 mmol/L; PCO2 VBG 94 mmHg (38-50); PO2 VBG 29 mmHg; pH VBG 7.27 (7.36-7.41)
[2021-06-09 10:07] LABS: Oxygen Saturation VBG < 60.0 %
[2021-06-09] MEDS: METOPROLOL SUCC 50MG EXT REL TAB PO SCH (10:30)
[2021-06-09] MEDS: MAGNESIUM SULFATE / D5W 1 GM/100 ML BAG IV SCH ×2 (10:30→12:14)
--- NOTE | 2021-06-09 12:11 | Hospitalist Progress Note ---
Date of Service June 09, 2021 Assessment & Plan (1) COVID-19: Plan: 75-year-old female with a history of tobacco abuse since teenage years. Patient lives alone and is independent with ADLs. She is nonvaccinated. Patient developed sore throat and cough approximately 2 weeks ago. Over the last several days she has developed a productive cough with green sputum. Family is unaware of any fever or rigors. Patient did have chills at home. Patient was brought into the emergency department and found to be hypoxic in the 50s reportedly.. She was started empirically on remdesivir, dexamethasone and supplemental oxygen. Currently she is in isolation for COVID-19. CXR negative for PNA but likely with COVID-19 Pneumonitis and with acute respiratory failure with hypoxia and hypercarbia CRP elevated at 10 Improved now on 4LNC, refusing BiPAP despite evidence of hypercarbia -continue 10 day course of dexamethasone -not reliable historian as far as time course-ok to continue remdesivir x 5 day course -received 1 dose IV lasix on 06/08, none further needed for now -Continue titrate supplemental oxygen to maintain SaO2 between 88 and 92% -Patient would not desire to be intubated or have tracheostomy tube placed. Changed to DNR/DNI no resuscitation after discussion with sister and [facility]. (2) Hypomagnesemia: Plan: replaced and remains slightly low today replace with 2 grams IV mag today follow level in AM (3) Encephalopathy: Plan: Patient received clonazepam on night of admission for RLS-caused severe lethargy for 12 hours-has since been discontinued CT head is negative Now encephalopathy completely resolved advance diet to regular (4) Hypoxia: Plan: Secondary to COPD exacerbation and COVID-19 Continue with supplemental oxygen to maintain SaO2 between 88 and 92% Continue to treat for COVID-19 with steroids Empiric azithromycin for COPD exacerbation (5) COPD (chronic obstructive pulmonary disease): Plan: Lifelong adult smoker (current everyday smoker) No evidence of pulmonary function testing Patient is prescribed Spiriva Respimat 2 puffs daily as well as albuterol as needed as an outpatient Chest x-ray with evidence of emphysema Continue to treat for possible exacerbation with azithromycin and dexamethasone Maintain SaO2 between 88 and 92% (6) Hyperglycemia: Plan: No history of diabetes mellitus Hemoglobin A1c is 6.0% Continue NovoLog sliding scale insulin due to intermediate acting dexamethasone for COVID-19 (7) Hypertension: Plan: BPs controlled Continue home medication including metoprolol succinate 50 mg p.o. daily Also gave one-time dose of furosemide 20 mg IV as listed above in #1 (8) Restless leg syndrome: Plan: Avoid benzodiazepines Continue to monitor ferritin level low at 50 considering inflammatory state -start FeSO4 325mg po daily as Fe deficiency can be associated with RLS (9) Tobacco use disorder: Plan: encouraged cessation especially if she ends up going home onO2 (10) Underweight: Plan: BMI 15 encouraged Boost shakes likely due to living alone, heavy smoker and doesn't eat much (11) Severe protein-calorie malnutrition: Plan: as above Nutritional support (12) DVT prophylaxis: Plan: enoxaparin but will lower dose to 30mg SQ daily due to low body weight Increase activity as tolerated, consult PT/OT Dispo-continued stay, downgrade off tele to med/surg Admission and Anticipated Discharge Date Admission Date: June 07, 2021 Subjective Pt is wide awake and alert, says repeatedly about how hungry she is. Denies CP or SOB. She refused BiPAP last night.She says she is not really all that interested in wearing a facemask. Talked to her sister on the phone who was just very shocked still at how thin her sister is-she said she had no idea how much weight she had lost because typically the patient wears multiple layers and is bundled up from being cold at home Tele with NSR, normal rates Review of Systems Review of Systems: All systems reviewed & are unremarkable except as noted in HPI & below Physical Exam Constitutional: + cachectic; no acute distress Eyes: + anicteric sclerae ENMT: Mouth: + oral mucosal abnormality (white exudate on tongue and mucosa) Neck: trachea midline, no thyromegaly Respiratory: normal respiratory effort; no labored breathing and no cough Auscultation: + diminished lung sounds (throughout); no crackles, no rhonchi and no wheezes Cardiovascular: RRR, no murmur, no edema Chest (Breasts): Chest: normal inspection of chest Gastrointestinal (Abdomen): normal bowel sounds, soft, nontender, no hepatosplenomegaly Musculoskeletal: Extremities: extremities normal to inspection; no cyanosis and no clubbing Skin: no rashes, warm and dry Neurologic: moves all extremities and awake; no focal motor deficits Psychiatric: A+Ox3, euthymic affect Lymphatic: no lymphedema Results & Data Results & Data ([facility]) Vital Signs (Past 12 Hours) Vital Signs Temp Pulse Resp BP Pulse Ox Pulse Ox 06/09/21 12:03 36.7 C 75 17 112/68 90 06/09/21 08:25 36.7 C 85 16 122/74 94 06/09/21 03:31 36.4 C L 81 20 122/67 94 06/09/21 02:28 95 Laboratory Results 06/09/21 06/09/21 06/09/21 Range/Units 11:59 09:09 08:18 WBC (4.8-10.8) K/uL RBC (4.2-5.4) M/uL Hgb (12.0-16.0) g/dL Hct (37-47) % MCV (80-100) fL MCH (25-34) pg MCHC (32-36) g/dL RDW Std Deviation (36.4-46.3) fL RDW Coeff of Adriana (11.5-14.5) % Plt Count (130-400) K/uL MPV (7.4-10.4) fL Immature Gran % (Auto) % Neut % (Auto) % Lymph % (Auto) % [place] % (Auto) % Eos % (Auto) % Baso % (Auto) % Neut # (Auto) (1.4-6.5) K/uL Lymph # (Auto) (1.2-3.4) K/uL [place] # (Auto) (0.11-0.59) K/uL Eos # (Auto) (0-0.5) K/uL Baso # (Auto) (0-0.2) K/uL Immature Gran # (Auto) (0.00-0.02) K/uL PT (9.0-12.0) Seconds INR (0.9-1.1) APTT (21.0-31.0) Seconds PTT Ratio ABG pH (7.35-7.45) ABG pCO2 (35-46) mmHg ABG pO2 (80-95) mmHg ABG HCO3 (19-24) mmol/L ABG O2 Saturation (90-95) % ABG Base Excess (-9-1.8) mEq/L Enzo Test (Pos) VBG pH 7.27 L VBG pCO2 94 H VBG pO2 29 VBG HCO3 42 VBG O2 Saturation < 60.0 VBG Base Excess 10.3 Barometric Pressure 733.5 mm/Hg Oxygen Given Sodium (136-145) mmol/L Potassium (3.5-5.1) mmol/L Chloride (98-107) mmol/L Carbon Dioxide (21-32) mmol/L Anion Gap (3-11) BUN (6-23) mg/dl Creatinine (0.6-1.2) mg/dl Est Cr Clr Drug Dosing ml/min Est GFR ( Amer) ml/min Est GFR (Non-Af Amer) ml/min BUN/Creatinine Ratio (10-20) Glucose (70-99(Fasting)) mg/dl POC Glucose 106 H 104 H (70-99) mg/dl Calcium (8.5-10.1) mg/dl Magnesium (1.7-2.4) mg/dl Ferritin (8-388) ng/ml Total Bilirubin (0.2-1.0) mg/dl AST (13-39) U/L ALT (7-52) U/L Alkaline Phosphatase (34-104) U/L Troponin I (0-0.04) ng/ml C-Reactive Protein (0-0.5) mg/dl Total Protein (6.0-8.3) gm/dl Albumin (3.4-5.0) gm/dl Globulin (2.5-4.0) gm/dl Albumin/Globulin Ratio (0.9-2) 06/09/21 06/09/21 06/09/21 Range/Units 07:21 07:10 07:10 WBC 17.90 H (4.8-10.8) K/uL RBC 4.92 (4.2-5.4) M/uL Hgb 15.5 (12.0-16.0) g/dL Hct 51.9 H (37-47) % MCV 105.5 H (80-100) fL MCH 31.5 (25-34) pg MCHC 29.9 L (32-36) g/dL RDW Std Deviation 55.0 H (36.4-46.3) fL RDW Coeff of Adriana 14.1 (11.5-14.5) % Plt Count 312 (130-400) K/uL MPV 9.7 (7.4-10.4) fL Immature Gran % (Auto) 0.4 % Neut % (Auto) 78.2 % Lymph % (Auto) 11.7 % [place] % (Auto) 9.4 % Eos % (Auto) 0.0 % Baso % (Auto) 0.3 % Neut # (Auto) 13.98 H (1.4-6.5) K/uL Lymph # (Auto) 2.10 (1.2-3.4) K/uL [place] # (Auto) 1.69 H (0.11-0.59) K/uL Eos # (Auto) 0.00 (0-0.5) K/uL Baso # (Auto) 0.05 (0-0.2) K/uL Immature Gran # (Auto) 0.08 H (0.00-0.02) K/uL PT 11.9 (9.0-12.0) Seconds INR 1.1 (0.9-1.1) APTT 28.2 (21.0-31.0) Seconds PTT Ratio 1.0 ABG pH (7.35-7.45) ABG pCO2 (35-46) mmHg ABG pO2 (80-95) mmHg ABG HCO3 (19-24) mmol/L ABG O2 Saturation (90-95) % ABG Base Excess (-9-1.8) mEq/L Enzo Test (Pos) VBG pH Cancelled VBG pCO2 Cancelled VBG pO2 Cancelled VBG HCO3 Cancelled VBG O2 Saturation Cancelled VBG Base Excess Cancelled Barometric Pressure Cancelled mm/Hg Oxygen Given Sodium (136-145) mmol/L Potassium (3.5-5.1) mmol/L Chloride (98-107) mmol/L Carbon Dioxide (21-32) mmol/L Anion Gap (3-11) BUN (6-23) mg/dl Creatinine (0.6-1.2) mg/dl Est Cr Clr Drug Dosing ml/min Est GFR ( Amer) ml/min Est GFR (Non-Af Amer) ml/min BUN/Creatinine Ratio (10-20) Glucose (70-99(Fasting)) mg/dl POC Glucose (70-99) mg/dl Calcium (8.5-10.1) mg/dl Magnesium (1.7-2.4) mg/dl Ferritin (8-388) ng/ml Total Bilirubin (0.2-1.0) mg/dl AST (13-39) U/L ALT (7-52) U/L Alkaline Phosphatase (34-104) U/L Troponin I (0-0.04) ng/ml C-Reactive Protein (0-0.5) mg/dl Total Protein (6.0-8.3) gm/dl Albumin (3.4-5.0) gm/dl Globulin (2.5-4.0) gm/dl Albumin/Globulin Ratio (0.9-2) 06/09/21 06/08/21 06/08/21 Range/Units 07:10 20:28 20:01 WBC (4.8-10.8) K/uL RBC (4.2-5.4) M/uL Hgb (12.0-16.0) g/dL Hct (37-47) % MCV (80-100) fL MCH (25-34) pg MCHC (32-36) g/dL RDW Std Deviation (36.4-46.3) fL RDW Coeff of Adriana (11.5-14.5) % Plt Count (130-400) K/uL MPV (7.4-10.4) fL Immature Gran % (Auto) % Neut % (Auto) % Lymph % (Auto) % [place] % (Auto) % Eos % (Auto) % Baso % (Auto) % Neut # (Auto) (1.4-6.5) K/uL Lymph # (Auto) (1.2-3.4) K/uL [place] # (Auto) (0.11-0.59) K/uL Eos # (Auto) (0-0.5) K/uL Baso # (Auto) (0-0.2) K/uL Immature Gran # (Auto) (0.00-0.02) K/uL PT (9.0-12.0) Seconds INR (0.9-1.1) APTT (21.0-31.0) Seconds PTT Ratio ABG pH (7.35-7.45) ABG pCO2 (35-46) mmHg ABG pO2 (80-95) mmHg ABG HCO3 (19-24) mmol/L ABG O2 Saturation (90-95) % ABG Base Excess (-9-1.8) mEq/L Enzo Test (Pos) VBG pH VBG pCO2 VBG pO2 VBG HCO3 VBG O2 Saturation VBG Base Excess Barometric Pressure mm/Hg Oxygen Given Sodium 145 (136-145) mmol/L Potassium 4.3 (3.5-5.1) mmol/L Chloride 103 (98-107) mmol/L Carbon Dioxide 40 H (21-32) mmol/L Anion Gap 2 L (3-11) BUN 23 (6-23) mg/dl Creatinine 0.70 (0.6-1.2) mg/dl Est Cr Clr Drug Dosing 45.7 ml/min Est GFR ( Amer) 98.2 ml/min Est GFR (Non-Af Amer) 84.8 ml/min BUN/Creatinine Ratio 32.9 H (10-20) Glucose 84 (70-99(Fasting)) mg/dl POC Glucose 85 (70-99) mg/dl Calcium 8.8 (8.5-10.1) mg/dl Magnesium 1.7 (1.7-2.4) mg/dl Ferritin (8-388) ng/ml Total Bilirubin 0.4 (0.2-1.0) mg/dl AST 26 (13-39) U/L ALT 26 (7-52) U/L Alkaline Phosphatase 64 (34-104) U/L Troponin I 0.04 0.04 (0-0.04) ng/ml C-Reactive Protein (0-0.5) mg/dl Total Protein 5.6 L (6.0-8.3) gm/dl Albumin 3.1 L (3.4-5.0) gm/dl Globulin 2.5 (2.5-4.0) gm/dl Albumin/Globulin Ratio 1.2 (0.9-2) 06/08/21 06/08/21 06/08/21 Range/Units 16:07 12:59 12:59 WBC (4.8-10.8) K/uL RBC (4.2-5.4) M/uL Hgb (12.0-16.0) g/dL Hct (37-47) % MCV (80-100) fL MCH (25-34) pg MCHC (32-36) g/dL RDW Std Deviation (36.4-46.3) fL RDW Coeff of Adriana (11.5-14.5) % Plt Count (130-400) K/uL MPV (7.4-10.4) fL Immature Gran % (Auto) % Neut % (Auto) % Lymph % (Auto) % [place] % (Auto) % Eos % (Auto) % Baso % (Auto) % Neut # (Auto) (1.4-6.5) K/uL Lymph # (Auto) (1.2-3.4) K/uL [place] # (Auto) (0.11-0.59) K/uL Eos # (Auto) (0-0.5) K/uL Baso # (Auto) (0-0.2) K/uL Immature Gran # (Auto) (0.00-0.02) K/uL PT (9.0-12.0) Seconds INR (0.9-1.1) APTT (21.0-31.0) Seconds PTT Ratio ABG pH 7.31 L (7.35-7.45) ABG pCO2 74 H (35-46) mmHg ABG pO2 55 L (80-95) mmHg ABG HCO3 36 H (19-24) mmol/L ABG O2 Saturation 88.0 L (90-95) % ABG Base Excess 6.7 H (-9-1.8) mEq/L Enzo Test Pos (Pos) VBG pH VBG pCO2 VBG pO2 VBG HCO3 VBG O2 Saturation VBG Base Excess Barometric Pressure 730.3 mm/Hg Oxygen Given 3L Sodium (136-145) mmol/L Potassium (3.5-5.1) mmol/L Chloride (98-107) mmol/L Carbon Dioxide (21-32) mmol/L Anion Gap (3-11) BUN (6-23) mg/dl Creatinine (0.6-1.2) mg/dl Est Cr Clr Drug Dosing ml/min Est GFR ( Amer) ml/min Est GFR (Non-Af Amer) ml/min BUN/Creatinine Ratio (10-20) Glucose (70-99(Fasting)) mg/dl POC Glucose 92 (70-99) mg/dl Calcium (8.5-10.1) mg/dl Magnesium (1.7-2.4) mg/dl Ferritin Cancelled (8-388) ng/ml Total Bilirubin (0.2-1.0) mg/dl AST (13-39) U/L ALT (7-52) U/L Alkaline Phosphatase (34-104) U/L Troponin I (0-0.04) ng/ml C-Reactive Protein 10.16 H (0-0.5) mg/dl Total Protein (6.0-8.3) gm/dl Albumin (3.4-5.0) gm/dl Globulin (2.5-4.0) gm/dl Albumin/Globulin Ratio (0.9-2) 06/08/21 06/08/21 Range/Units 12:59 12:09 WBC (4.8-10.8) K/uL RBC (4.2-5.4) M/uL Hgb (12.0-16.0) g/dL Hct (37-47) % MCV (80-100) fL MCH (25-34) pg MCHC (32-36) g/dL RDW Std Deviation (36.4-46.3) fL RDW Coeff of Adriana (11.5-14.5) % Plt Count (130-400) K/uL MPV (7.4-10.4) fL Immature Gran % (Auto) % Neut % (Auto) % Lymph % (Auto) % [place] % (Auto) % Eos % (Auto) % Baso % (Auto) % Neut # (Auto) (1.4-6.5) K/uL Lymph # (Auto) (1.2-3.4) K/uL [place] # (Auto) (0.11-0.59) K/uL Eos # (Auto) (0-0.5) K/uL Baso # (Auto) (0-0.2) K/uL Immature Gran # (Auto) (0.00-0.02) K/uL PT (9.0-12.0) Seconds INR (0.9-1.1) APTT (21.0-31.0) Seconds PTT Ratio ABG pH (7.35-7.45) ABG pCO2 (35-46) mmHg ABG pO2 (80-95) mmHg ABG HCO3 (19-24) mmol/L ABG O2 Saturation (90-95) % ABG Base Excess (-9-1.8) mEq/L Enzo Test (Pos) VBG pH VBG pCO2 VBG pO2 VBG HCO3 VBG O2 Saturation VBG Base Excess Barometric Pressure mm/Hg Oxygen Given Sodium (136-145) mmol/L Potassium (3.5-5.1) mmol/L Chloride (98-107) mmol/L Carbon Dioxide (21-32) mmol/L Anion Gap (3-11) BUN (6-23) mg/dl Creatinine (0.6-1.2) mg/dl Est Cr Clr Drug Dosing ml/min Est GFR ( Amer) ml/min Est GFR (Non-Af Amer) ml/min BUN/Creatinine Ratio (10-20) Glucose (70-99(Fasting)) mg/dl POC Glucose 102 H (70-99) mg/dl Calcium (8.5-10.1) mg/dl Magnesium (1.7-2.4) mg/dl Ferritin 50.7 (8-388) ng/ml Total Bilirubin (0.2-1.0) mg/dl AST (13-39) U/L ALT (7-52) U/L Alkaline Phosphatase (34-104) U/L Troponin I 0.03 (0-0.04) ng/ml C-Reactive Protein (0-0.5) mg/dl Total Protein (6.0-8.3) gm/dl Albumin (3.4-5.0) gm/dl Globulin (2.5-4.0) gm/dl Albumin/Globulin Ratio (0.9-2) PG Care Time/CCT Total # of Minutes Spent Total Time Spent with Patient: Total time spent is greater than 50% in coordination of care (as documented) at patient's floor/unit and/or counseling patient: Coding Level of Care Code 86234 Subseq Hosp Care Lvl 3 Diagnoses COVID-19 U07.1 Hypomagnesemia E83.42 Encephalopathy G93.40 Hypoxia R09.02 COPD (chronic obstructive pulmonary disease) J44.9 Hyperglycemia R73.9 Hypertension I10 Restless leg syndrome G25.81 Tobacco use disorder F17.200 DVT prophylaxis Z29.9 Underweight R63.6 Severe protein-calorie malnutrition E43
[2021-06-09] MEDS ORDERED: FERROUS SULFATE 325 MG/7.4 ML UDP PO SCH (12:30)
[2021-06-09] MEDS: FERROUS SULFATE 325 MG TAB PO SCH (13:30)
[2021-06-09] MEDS: NYSTATIN SUSP 500,000 U/5 ML UDC PO SCH ×3 (13:30→21:49)
[2021-06-09] MEDS ORDERED: FERROUS SULFATE 325 MG TAB PO SCH (14:35)
[2021-06-09] MEDS: REMDESIVIR 100 MG in SODIUM CHLORIDE 0.9% 230 ML IV SCH (20:16)
[2021-06-10 07:17] LABS: Basophils # (auto) 0.02 K/uL (0-0.2); Basophils % (auto) 0.1 %; Eosinophils # (auto) 0.01 K/uL (0-0.5); Eosinophils % (auto) 0.1 %; Hemoglobin 15.3 g/dL (12.0-16.0); Immature Granulocytes # (auto) 0.09 K/uL (0.00-0.02); Immature Granulocytes % (auto) 0.5 %; Lymphocytes # (auto) 2.31 K/uL (1.2-3.4); Lymphocytes % (auto) 13.7 %; Mean Corpuscular Hemoglobin 31.7 pg (25-34); Mean Corpuscular Hgb Conc 31.2 g/dL (32-36); Mean Corpuscular Volume 101.7 fL (80-100); Mean Platelet Volume 9.4 fL (7.4-10.4); Monocytes # (auto) 1.46 K/uL (0.11-0.59); Monocytes % (auto) 8.7 %; Neutrophils # (auto) 12.97 K/uL (1.4-6.5); Neutrophils % (auto) 76.9 %; Platelet Count 340 K/uL (130-400); RDW Coefficient of Variation 13.8 % (11.5-14.5); RDW Standard Deviation 51.7 fL (36.4-46.3); Red Blood Count 4.82 M/uL (4.2-5.4); White Blood Count 16.86 K/uL (4.8-10.8)
[2021-06-10 08:15] LABS: Albumin Globulin Ratio 1.3 (0.9-2); Albumin Level 3.2 gm/dl (3.4-5.0); BUN Creatinine Ratio 40.3 (10-20); Bilirubin,Total 0.6 mg/dl (0.2-1.0); Calcium 8.9 mg/dl (8.5-10.1); Creatinine Clr Calc Pharmacy 47.8 ml/min; Est GFR (African American) 99.7 ml/min; Globulin 2.5 gm/dl (2.5-4.0); Magnesium 1.7 mg/dl (1.7-2.4); Potassium 3.4 mmol/L (3.5-5.1); Total Protein 5.7 gm/dl (6.0-8.3)
[2021-06-10] MEDS: INSULIN ASPART PER UNIT SC SCH ×4 (08:15→20:45)
[2021-06-10] MEDS: dexAMETHasone 6 MG in SYRINGE 0 ML IV SCH (08:20)
[2021-06-10] MEDS: METOPROLOL SUCC 50MG EXT REL TAB PO SCH (08:21)
[2021-06-10] MEDS: CHOLECALCIFEROL 1,000 UNITS 25 MCG TAB PO SCH (08:21)
[2021-06-10] MEDS: ASPIRIN 81 MG ECTAB PO SCH (08:21)
[2021-06-10] MEDS: guaiFENesin 600 MG TABCR PO SCH ×2 (08:21→20:34)
[2021-06-10] MEDS: NYSTATIN SUSP 500,000 U/5 ML UDC PO SCH ×4 (08:22→20:34)
[2021-06-10] MEDS: UMECLIDINIUM BROMIDE 62.5MCG/BLISTER 7 PUFFS/INHALER INH SCH (08:22)
[2021-06-10] MEDS: HEPARIN SOD 5,000 UNIT/0.5 ML VIAL SC SCH ×2 (08:23→20:45)
[2021-06-10] MEDS: FERROUS SULFATE 325 MG TAB PO SCH (08:23)
[2021-06-10] MEDS: AZITHROMYCIN 250 MG TAB PO SCH (08:24)
[2021-06-10] MEDS ORDERED: ENOXAPARIN INJ 40 MG/0.4 ML SYR SQ SCH (09:00)
--- NOTE | 2021-06-10 13:13 | Hospitalist Progress Note ---
Date of Service June 10, 2021 Assessment & Plan (1) COVID-19: Plan: 75-year-old female with a history of tobacco abuse since teenage years. Patient lives alone and is independent with ADLs. She is nonvaccinated. Patient developed sore throat and cough approximately 2 weeks ago. Over the last several days she has developed a productive cough with green sputum. Family is unaware of any fever or rigors. Patient did have chills at home. Patient was brought into the emergency department and found to be hypoxic in the 50s reportedly.. She was started empirically on remdesivir, dexamethasone and supplemental oxygen. Currently she is in isolation for COVID-19. COVID-19 pneumoniaCXR negative CRP elevated to 10 Remains on 4 L nasal cannula, refuses BiPAP Continue dexamethasone 6 mg daily x10 days Continue remdesivir No additional Lasix indicated at this time SPO2 goal greater than 88% DNR/DNI Patient high risk given very high CRP and underlying tobacco abuse/COPD If stable and less than 4 L nasal cannula with ambulation can consider two-step at that time we will continue treatment as above at this time (2) Hypomagnesemia: Plan: Slightly improved, low end of normal today Continue repletion oral (3) Encephalopathy: Plan: Patient received clonazepam on night of admission for RLS-caused severe lethargy for 12 hours-has since been discontinued CT head is negative Now encephalopathy completely resolved Continue regular diet (4) Hypoxia: Plan: Secondary to COPD exacerbation and COVID-19 Continue with supplemental oxygen to maintain SaO2 between 88 and 92% Continue to treat for COVID-19 with steroids Continue azithromycin, 5-day course started on admission to be complete 06/13 (5) COPD (chronic obstructive pulmonary disease): Plan: Lifelong adult smoker (current everyday smoker) No evidence of pulmonary function testing Patient is prescribed Spiriva Respimat 2 puffs daily as well as albuterol as needed as an outpatient Chest x-ray with evidence of emphysema Continue to treat for possible exacerbation with azithromycin and dexamethasone Maintain SaO2 between 88 and 92% (6) Hyperglycemia: Plan: No history of diabetes mellitus Hemoglobin A1c is 6.0% Continue NovoLog sliding scale insulin due to intermediate acting dexamethasone for COVID-19 (7) Hypertension: Plan: BPs controlled Continue home medication including metoprolol succinate 50 mg p.o. daily Also gave one-time dose of furosemide 20 mg IV as listed above in #1 (8) Restless leg syndrome: Plan: Avoid benzodiazepines Continue to monitor ferritin level low at 50 considering inflammatory state -start FeSO4 325mg po daily as Fe deficiency can be associated with RLS (9) Tobacco use disorder: Plan: encouraged cessation especially if she ends up going home onO2 (10) Underweight: Plan: BMI 15 encouraged Boost shakes likely due to living alone, heavy smoker and doesn't eat much (11) Severe protein-calorie malnutrition: Plan: as above Nutritional support (12) DVT prophylaxis: Plan: enoxaparin but will lower dose to 30mg SQ daily due to low body weight Increase activity as tolerated PT/OT consulted Dispo-continued stay, downgrade off tele to med/surg Admission and Anticipated Discharge Date Admission Date: June 07, 2021 Subjective Seen in the room today. Shortness of breath improved, feels somewhat weak but otherwise better than yesterday. Minimal dry cough today, nonproductive. Denies fever, chills, sweats. Does not use oxygen at home, is comfortable on 4 L of nasal cannula but feels tired trying to ambulate. Does not like the food, but denies nausea/vomiting/diarrhea/constipation Review of Systems Review of Systems: All systems reviewed & are unremarkable except as noted in Subjective Physical Exam Physical Exam: General: A&Ox3. NAD. Cooperative. HEENT: Atraumatic, normocephalic. Visual acuity and hearing grossly intact. Pulm: Diminished without overt wheezes, rales, or rhonchi. Symmetrical chest rise. No increase in work of breathing. No respiratory distress. Cardiac: RRR, -mrg. Radial pulses intact and symmetrical. Abdominal: Nontender, nondistended, soft. BS present. Results & Data Results & Data ([facility]) Vital Signs (Past 12 Hours) Vital Signs Temp Pulse Resp BP Pulse Ox 06/10/21 07:01 36.4 C L 76 18 162/80 H 90 PG Care Time/CCT Total # of Minutes Spent Total Time Spent with Patient: Total time spent is greater than 50% in coordination of care (as documented) at patient's floor/unit and/or counseling patient: Coding Level of Care Code 27222 Subseq Hosp Care Lvl 2 Diagnoses COVID-19 U07.1 Hypomagnesemia E83.42 Encephalopathy G93.40 Hypoxia R09.02 COPD (chronic obstructive pulmonary disease) J44.9 Hyperglycemia R73.9 Hypertension I10 Restless leg syndrome G25.81 Tobacco use disorder F17.200 Underweight R63.6 Severe protein-calorie malnutrition E43 DVT prophylaxis Z29.9
[2021-06-10] MEDS: POTASSIUM CHLORIDE CRTAB 20 MEQ TABCR PO SCH ×2 (15:48→22:00)
[2021-06-10] MEDS: REMDESIVIR 100 MG in SODIUM CHLORIDE 0.9% 230 ML IV SCH (20:30)
[2021-06-11 08:20] LABS: Basophils # (auto) 0.02 K/uL (0-0.2); Basophils % (auto) 0.1 %; Eosinophils # (auto) 0.02 K/uL (0-0.5); Eosinophils % (auto) 0.1 %; Hematocrit (blood only) 46.9 % (37-47); Hemoglobin 15.1 g/dL (12.0-16.0); Immature Granulocytes # (auto) 0.05 K/uL (0.00-0.02); Immature Granulocytes % (auto) 0.3 %; Lymphocytes # (auto) 1.94 K/uL (1.2-3.4); Lymphocytes % (auto) 13.3 %; Mean Corpuscular Hemoglobin 32.2 pg (25-34); Mean Corpuscular Hgb Conc 32.2 g/dL (32-36); Mean Platelet Volume 9.4 fL (7.4-10.4); Monocytes # (auto) 1.25 K/uL (0.11-0.59); Monocytes % (auto) 8.6 %; Neutrophils # (auto) 11.26 K/uL (1.4-6.5); Neutrophils % (auto) 77.6 %; Platelet Count 374 K/uL (130-400); RDW Standard Deviation 51.2 fL (36.4-46.3); Red Blood Count 4.69 M/uL (4.2-5.4); White Blood Count 14.54 K/uL (4.8-10.8)
[2021-06-11] MEDS: guaiFENesin 600 MG TABCR PO SCH ×2 (08:40→20:18)
[2021-06-11] MEDS: CHOLECALCIFEROL 1,000 UNITS 25 MCG TAB PO SCH (08:41)
[2021-06-11] MEDS: METOPROLOL SUCC 50MG EXT REL TAB PO SCH (08:41)
[2021-06-11] MEDS: dexAMETHasone 6 MG in SYRINGE 0 ML IV SCH (08:41)
[2021-06-11] MEDS: NYSTATIN SUSP 500,000 U/5 ML UDC PO SCH ×4 (08:41→20:18)
[2021-06-11] MEDS: ASPIRIN 81 MG ECTAB PO SCH (08:41)
[2021-06-11] MEDS: UMECLIDINIUM BROMIDE 62.5MCG/BLISTER 7 PUFFS/INHALER INH SCH (08:42)
[2021-06-11] MEDS: HEPARIN SOD 5,000 UNIT/0.5 ML VIAL SC SCH ×2 (08:42→20:19)
[2021-06-11] MEDS: FERROUS SULFATE 325 MG TAB PO SCH (08:42)
[2021-06-11] MEDS: AZITHROMYCIN 250 MG TAB PO SCH (08:42)
[2021-06-11] MEDS: MAGNESIUM OXIDE 400 MG TAB PO SCH (08:42)
[2021-06-11 08:46] LABS: Albumin Globulin Ratio 1.1 (0.9-2); Bilirubin,Total 0.5 mg/dl (0.2-1.0); Calcium 8.7 mg/dl (8.5-10.1); Creatinine Clr Calc Pharmacy 58.2 ml/min; Est GFR (African American) 106.3 ml/min; Est GFR (Non-African American) 91.8 ml/min; Globulin 2.8 gm/dl (2.5-4.0); Potassium 4.1 mmol/L (3.5-5.1); Total Protein 5.8 gm/dl (6.0-8.3)
[2021-06-11] MEDS: INSULIN ASPART PER UNIT SC SCH ×4 (09:19→20:07)
[2021-06-11] MEDS: POTASSIUM CHLORIDE CRTAB 20 MEQ TABCR PO SCH (09:19)
--- NOTE | 2021-06-11 16:34 | Hospitalist Progress Note ---
Date of Service June 11, 2021 Assessment & Plan (1) COVID-19: Plan: 75-year-old female with a history of tobacco abuse since teenage years. Patient lives alone and is independent with ADLs. She is nonvaccinated. Patient developed sore throat and cough approximately 2 weeks ago. Over the last several days she has developed a productive cough with green sputum. Family is unaware of any fever or rigors. Patient did have chills at home. Patient was brought into the emergency department and found to be hypoxic in the 50s reportedly.. She was started empirically on remdesivir, dexamethasone and supplemental oxygen. Currently she is in isolation for COVID-19. COVID-19 pneumoniaCXR negative CRP elevated to 10 Remains on 4 L nasal cannula, refuses BiPAP Continue dexamethasone 6 mg daily x10 days Continue remdesivir No additional Lasix indicated at this time SPO2 goal greater than 88% DNR/DNI Patient high risk given very high CRP and underlying tobacco abuse/COPD Remains on 4 L of oxygen with increased shortness of breath during ambulation. Remdesivir complete tomorrow. PT OT saw, recommended potential return home versus acute rehab and noted was able to ambulate 65 feet without an AD at supervision level and steady gait. S he did desaturate below 88% however, but returned to 90s with rest. This point remains with desaturations with exertion requiring more than 4 L of oxygen, would continue dexamethasone remdesivir as above and perform two-step once oxygen requirements are more improved (2) Hypomagnesemia: Plan: Improved with repletion (3) Encephalopathy: Plan: Patient received clonazepam on night of admission for RLS-caused severe lethargy for 12 hours-has since been discontinued CT head is negative Now encephalopathy completely resolved Continue regular diet (4) Hypoxia: Plan: Secondary to COPD exacerbation and COVID-19 Continue with supplemental oxygen to maintain SaO2 between 88 and 92% Continue to treat for COVID-19 with steroids Continue azithromycin, 5-day course started on admission to be complete 06/13 (5) COPD (chronic obstructive pulmonary disease): Plan: Lifelong adult smoker (current everyday smoker) No evidence of pulmonary function testing Patient is prescribed Spiriva Respimat 2 puffs daily as well as albuterol as needed as an outpatient Chest x-ray with evidence of emphysema Continue to treat for possible exacerbation with azithromycin and dexamethasone Maintain SaO2 between 88 and 92% (6) Hyperglycemia: Plan: No history of diabetes mellitus Hemoglobin A1c is 6.0% Continue NovoLog sliding scale insulin due to intermediate acting dexamethasone for COVID-19 (7) Hypertension: Plan: BPs controlled Continue home medication including metoprolol succinate 50 mg p.o. daily Also gave one-time dose of furosemide 20 mg IV as listed above in #1 (8) Restless leg syndrome: Plan: Avoid benzodiazepines Continue to monitor ferritin level low at 50 considering inflammatory state -start FeSO4 325mg po daily as Fe deficiency can be associated with RLS (9) Tobacco use disorder: Plan: encouraged cessation especially if she ends up going home onO2 (10) Underweight: Plan: BMI 15 encouraged Boost shakes likely due to living alone, heavy smoker and doesn't eat much (11) Severe protein-calorie malnutrition: Plan: as above Nutritional support (12) DVT prophylaxis: Plan: enoxaparin but will lower dose to 30mg SQ daily due to low body weight Increase activity as tolerated PT/OT consulted Disposition: Improving, but continues to have oxygen requirements greater than 4 L with ambulation, clinically progressing. Continue to follow. Stable for [facility] today. Admission and Anticipated Discharge Date Admission Date: June 07, 2021 Subjective Nat is seen at the bedside today.She reports that her breathing seems similar to yesterday, remains on 4 L of nasal cannula oxygen. Somewhat short of breath with ambulation. Denies fever, chills, sweats overnight. She is trying to eat more because she would like to avoid rehab, although she knows that her body weight is low and she is weak. She feels she has eaten more for breakfast today than yesterday. No diarrhea. No abdominal pain. Continues to have an intermittent dry cough. No congestion. Review of Systems Review of Systems: All systems reviewed & are unremarkable except as noted in Subjective Physical Exam Physical Exam: General: A&Ox3. NAD. Cooperative. HEENT: Atraumatic, normocephalic. Visual acuity and hearing grossly intact. Pulm: Diminished without overt wheezes, rales, or rhonchi. Symmetrical chest rise. No increase in work of breathing. No respiratory distress. Cardiac: RRR, -mrg. Radial pulses intact and symmetrical. Abdominal: Nontender, nondistended, soft. BS present. Results & Data Results & Data ([facility]) Vital Signs (Past 12 Hours) Vital Signs Temp Pulse Resp BP Pulse Ox Pulse Ox Pulse Ox 06/11/21 15:40 36.8 C 85 18 120/69 95 06/11/21 14:54 93 90 06/11/21 14:25 92 06/11/21 08:11 36.4 C L 70 18 166/82 H 93 PG Care Time/CCT Total # of Minutes Spent Total Time Spent with Patient: Total time spent is greater than 50% in coordination of care (as documented) at patient's floor/unit and/or counseling patient: Coding Level of Care Code 78031 Subseq Hosp Care Lvl 2 Diagnoses COVID-19 U07.1 Hypomagnesemia E83.42 Encephalopathy G93.40 Hypoxia R09.02 COPD (chronic obstructive pulmonary disease) J44.9 Hyperglycemia R73.9 Hypertension I10 Restless leg syndrome G25.81 Tobacco use disorder F17.200 Underweight R63.6 Severe protein-calorie malnutrition E43 DVT prophylaxis Z29.9
[2021-06-11] MEDS: REMDESIVIR 100 MG in SODIUM CHLORIDE 0.9% 230 ML IV SCH (20:18)
[2021-06-12 08:56] LABS: Albumin Globulin Ratio 1.1 (0.9-2); Albumin Level 3.3 gm/dl (3.4-5.0); BUN Creatinine Ratio 38.2 (10-20); Bilirubin,Total 0.6 mg/dl (0.2-1.0); Calcium 8.9 mg/dl (8.5-10.1); Creatinine Clr Calc Pharmacy 57.9 ml/min; Est GFR (African American) 106.3 ml/min; Est GFR (Non-African American) 91.8 ml/min; Globulin 2.9 gm/dl (2.5-4.0); Potassium 4.1 mmol/L (3.5-5.1); Total Protein 6.2 gm/dl (6.0-8.3)
[2021-06-12] MEDS: INSULIN ASPART PER UNIT SC SCH ×4 (08:57→21:10)
[2021-06-12] MEDS: dexAMETHasone 6 MG in SYRINGE 0 ML IV SCH (08:58)
[2021-06-12] MEDS: HEPARIN SOD 5,000 UNIT/0.5 ML VIAL SC SCH ×2 (08:58→21:22)
[2021-06-12] MEDS: guaiFENesin 600 MG TABCR PO SCH ×2 (08:58→21:21)
[2021-06-12] MEDS: NYSTATIN SUSP 500,000 U/5 ML UDC PO SCH ×4 (08:59→21:21)
[2021-06-12] MEDS: FERROUS SULFATE 325 MG TAB PO SCH (08:59)
[2021-06-12] MEDS: AZITHROMYCIN 250 MG TAB PO SCH (08:59)
[2021-06-12] MEDS: MAGNESIUM OXIDE 400 MG TAB PO SCH (08:59)
[2021-06-12] MEDS: ASPIRIN 81 MG ECTAB PO SCH (08:59)
[2021-06-12] MEDS: METOPROLOL SUCC 50MG EXT REL TAB PO SCH (08:59)
[2021-06-12] MEDS: UMECLIDINIUM BROMIDE 62.5MCG/BLISTER 7 PUFFS/INHALER INH SCH (09:00)
[2021-06-12] MEDS: CHOLECALCIFEROL 1,000 UNITS 25 MCG TAB PO SCH (09:00)
[2021-06-12] MEDS ORDERED: NICOTINE 14 MG/24 HR PATCH TD PRN (16:51)
--- NOTE | 2021-06-12 17:03 | Hospitalist Progress Note ---
Date of Service June 12, 2021 Assessment & Plan (1) COVID-19: Plan: 75-year-old female with a history of tobacco abuse since teenage years. Patient lives alone and is independent with ADLs. She is nonvaccinated. Patient developed sore throat and cough approximately 2 weeks ago. Over the last several days she has developed a productive cough with green sputum. Family is unaware of any fever or rigors. Patient did have chills at home. Patient was brought into the emergency department and found to be hypoxic in the 50s reportedly. She was started empirically on remdesivir, dexamethasone and supplemental oxygen. Currently she is in isolation for COVID-19. COVID-19 pneumoniaCXR negative CRP elevated to 10 Remains on 4 L nasal cannula, refuses BiPAP Continue dexamethasone 6 mg daily x10 days Continue remdesivir No additional Lasix indicated at this time SPO2 goal greater than 88% DNR/DNI Patient high risk given very high CRP and underlying tobacco abuse/COPD Remains on 4 L of oxygen with increased shortness of breath during ambulation. Remdesivir complete tomorrow. PT OT saw, recommended potential return home versus acute rehab and noted was able to ambulate 65 feet without an AD at supervision level and steady gait. Continues to have a oxygen requirement above 4 L at rest and worsened with exertion, no worsening today. Discussed with her family who report they can help care for her and will have 24-hour care when she returns home and reports she will likely refuse rehab, but like a conservative approach with regards to hospice time spend day of discharge minutes including direct patient care, documentation, review of labs and images, and coordination of care. And oxygen levels (2) Hypomagnesemia: Plan: Improved with repletion (3) Encephalopathy: Plan: Patient received clonazepam on night of admission for RLS-caused severe lethargy for 12 hours-has since been discontinued CT head is negative Now encephalopathy completely resolved Continue regular diet (4) Hypoxia: Plan: Secondary to COPD exacerbation and COVID-19 Continue with supplemental oxygen to maintain SaO2 between 88 and 92% Continue to treat for COVID-19 with steroids Continue azithromycin, 5-day course started on admission to be complete 06/13 (5) COPD (chronic obstructive pulmonary disease): Plan: Lifelong adult smoker (current everyday smoker) No evidence of pulmonary function testing Patient is prescribed Spiriva Respimat 2 puffs daily as well as albuterol as needed as an outpatient Chest x-ray with evidence of emphysema Continue to treat for possible exacerbation with azithromycin and dexamethasone Maintain SaO2 between 88 and 92% (6) Hyperglycemia: Plan: No history of diabetes mellitus Hemoglobin A1c is 6.0% Continue NovoLog sliding scale insulin due to intermediate acting dexamethasone for COVID-19 (7) Hypertension: Plan: BPs controlled Continue home medication including metoprolol succinate 50 mg p.o. daily Also gave one-time dose of furosemide 20 mg IV as listed above in #1 Elevated BUN/creatinine ratio, creatinine stable, no rales on exam. Defer additional Lasix at this time (8) Restless leg syndrome: Plan: Avoid benzodiazepines Continue to monitor ferritin level low at 50 considering inflammatory state -start FeSO4 325mg po daily as Fe deficiency can be associated with RLS (9) Tobacco use disorder: Plan: encouraged cessation especially if she ends up going home onO2 (10) Underweight: Plan: BMI 15 encouraged Boost shakes likely due to living alone, heavy smoker and doesn't eat much (11) Severe protein-calorie malnutrition: Plan: as above Nutritional support (12) DVT prophylaxis: Plan: enoxaparin but will lower dose to 30mg SQ daily due to low body weight Increase activity as tolerated Continue PT OT Disposition: Improving, but continues to have oxygen requirements greater than 4 L with ambulation, clinically progressing. Continue to follow. Stable for [facility] today. Admission and Anticipated Discharge Date Admission Date: June 07, 2021 Subjective Patient seen at bedside today. Update also given to family by phone in the afternoon. On morning visit Nat feels she is tired, but relatively unchanged from yesterday. She is not short of breath at bedside assessment, satting 90% on 5 L of oxygen. Does still get tired with movement. Is trying to eat more, has eaten more breakfast today than previously. [place] nausea, vomiting, diarrhea, constipation, productive cough, chest pain, chest pressure. Very anxious to get out of the hospital, discussed that can look into next tabs if she is maintaining relatively stable oxygen levels on 4 L, at this time she is still on 5 with quick desats with ambulation so requires further treatment. Also recommended that she may require temporary rehab or placement as she was very weak and likely to begin with, and the Covid will likely have scepter of a great deal of additional strength she did do fairly well with PT and when assessed yesterday. Patient says she does not wish to go to rehab and is always done fine and has many caregivers at home that can help her. Is agreeable to working with PT in the meantime. Review of Systems Review of Systems: All systems reviewed & are unremarkable except as noted in Subjective Physical Exam Physical Exam: General: A&Ox3. NAD. Cooperative. HEENT: Atraumatic, normocephalic. Visual acuity and hearing grossly intact. Pulm: Diminished without overt wheezes, rales, or rhonchi. Symmetrical chest rise. No increase in work of breathing. No respiratory distress. Cardiac: RRR, -mrg. Radial pulses intact and symmetrical. Abdominal: Nontender, nondistended, soft. BS present. Results & Data Results & Data ([facility]) Vital Signs (Past 12 Hours) Vital Signs Temp Pulse Resp BP Pulse Ox 06/12/21 16:24 36.8 C 76 18 128/72 93 06/12/21 11:39 36.8 C 69 18 126/68 94 06/12/21 08:00 36.5 C 75 18 170/83 H 91 PG Care Time/CCT Total # of Minutes Spent Total Time Spent with Patient: Total time spent is greater than 50% in coordination of care (as documented) at patient's floor/unit and/or counseling patient: Coding Level of Care Code 98866 Subseq Hosp Care Lvl 2 Diagnoses COVID-19 U07.1 Hypomagnesemia E83.42 Encephalopathy G93.40 Hypoxia R09.02 COPD (chronic obstructive pulmonary disease) J44.9 Hyperglycemia R73.9 Hypertension I10 Restless leg syndrome G25.81 Tobacco use disorder F17.200 Underweight R63.6 Severe protein-calorie malnutrition E43 DVT prophylaxis Z29.9
[2021-06-13 08:33] LABS: Albumin Globulin Ratio 1.1 (0.9-2); Albumin Level 3.1 gm/dl (3.4-5.0); BUN Creatinine Ratio 45.9 (10-20); Bilirubin,Total 0.6 mg/dl (0.2-1.0); Calcium 9.2 mg/dl (8.5-10.1); Creatinine Clr Calc Pharmacy 52.2 ml/min; Est GFR (African American) 102.8 ml/min; Est GFR (Non-African American) 88.7 ml/min; Globulin 2.8 gm/dl (2.5-4.0); Potassium 3.8 mmol/L (3.5-5.1); Total Protein 5.9 gm/dl (6.0-8.3)
[2021-06-13] MEDS: INSULIN ASPART PER UNIT SC SCH ×3 (08:47→18:11)
[2021-06-13] MEDS: HEPARIN SOD 5,000 UNIT/0.5 ML VIAL SC SCH ×3 (09:00→22:23)
[2021-06-13] MEDS: guaiFENesin 600 MG TABCR PO SCH ×2 (09:00→20:20)
[2021-06-13] MEDS: dexAMETHasone 6 MG in SYRINGE 0 ML IV SCH (09:00)
[2021-06-13] MEDS: MAGNESIUM OXIDE 400 MG TAB PO SCH (09:01)
[2021-06-13] MEDS: METOPROLOL SUCC 50MG EXT REL TAB PO SCH (09:01)
[2021-06-13] MEDS: FERROUS SULFATE 325 MG TAB PO SCH (09:01)
[2021-06-13] MEDS: UMECLIDINIUM BROMIDE 62.5MCG/BLISTER 7 PUFFS/INHALER INH SCH (09:01)
[2021-06-13] MEDS: NYSTATIN SUSP 500,000 U/5 ML UDC PO SCH ×4 (09:01→20:21)
[2021-06-13] MEDS: CHOLECALCIFEROL 1,000 UNITS 25 MCG TAB PO SCH (09:01)
[2021-06-13] MEDS: ASPIRIN 81 MG ECTAB PO SCH (09:01)
--- NOTE | 2021-06-13 19:11 | Hospitalist Progress Note ---
Date of Service June 13, 2021 Assessment & Plan (1) COVID-19: Plan: 75-year-old female with a history of tobacco abuse since teenage years. Patient lives alone and is independent with ADLs. She is nonvaccinated. Patient developed sore throat and cough approximately 2 weeks ago. Over the last several days she has developed a productive cough with green sputum. Family is unaware of any fever or rigors. Patient did have chills at home. Patient was brought into the emergency department and found to be hypoxic in the 50s reportedly. She was started empirically on remdesivir, dexamethasone and supplemental oxygen. Currently she is in isolation for COVID-19. COVID-19 pneumoniaCXR negative CRP elevated to 10 Remains on 4 L nasal cannula, refuses BiPAP Continue dexamethasone 6 mg daily x10 days Continue remdesivir No additional Lasix indicated at this time SPO2 goal greater than 88% DNR/DNI Remains on 4 L of oxygen with increased shortness of breath during ambulation. Remdesivir completed. PT OT saw, recommended potential return home versus acute rehab and noted was able to ambulate 65 feet without an AD at supervision level and steady gait. Continues to have a oxygen requirement above 4 L at rest and worsened with exertion, no worsening today. Feeling better but O2 requirement has been stable. Prior provider discussed with her family who report they can help care for her and will have 24-hour care when she returns home and reports she will likely refuse rehab, but like a conservative approach with regards to hospice time spend day of discharge minutes including direct patient care, documentation, review of labs and images, and coordination of care. And oxygen levels - Repeat CXR in AM as I do not have a good cause of her persistent O2 requirement other than end stage COPD given lack of COVID-19 changes. (2) Hypomagnesemia: Plan: Improved with repletion (3) Encephalopathy: Plan: Patient received clonazepam on night of admission for RLS-caused severe lethargy for 12 hours-has since been discontinued CT head is negative Now encephalopathy completely resolved Continue regular diet (4) Hypoxia: Plan: Secondary to COPD exacerbation and COVID-19 Continue with supplemental oxygen to maintain SaO2 between 88 and 92% Continue to treat for COVID-19 with steroids Continue azithromycin, 5-day course started on admission to be complete 06/13 (5) COPD (chronic obstructive pulmonary disease): Plan: Lifelong adult smoker (current everyday smoker) No evidence of pulmonary function testing Patient is prescribed Spiriva Respimat 2 puffs daily as well as albuterol as needed as an outpatient Chest x-ray with evidence of emphysema Continue to treat for possible exacerbation with azithromycin and dexamethasone Maintain SaO2 between 88 and 92% (6) Hyperglycemia: Plan: No history of diabetes mellitus Hemoglobin A1c is 6.0% Discontinue further glucose checks and insulin due to minimal insulin requirement and more important to help with nutrition. (7) Hypertension: Plan: BPs controlled Continue home medication including metoprolol succinate 50 mg p.o. daily Also gave one-time dose of furosemide 20 mg IV as listed above in #1 Elevated BUN/creatinine ratio, creatinine stable, no rales on exam. Defer additional Lasix at this time (8) Restless leg syndrome: Plan: Avoid benzodiazepines Continue to monitor ferritin level low at 50 considering inflammatory state -start FeSO4 325mg po daily as Fe deficiency can be associated with RLS (9) Tobacco use disorder: Plan: encouraged cessation especially if she ends up going home onO2 (10) Underweight: Plan: BMI 15 encouraged Boost shakes likely due to living alone, heavy smoker and doesn't eat much (11) Severe protein-calorie malnutrition: Plan: as above Nutritional support Plan: VTE Prophylaxis - Lovenox but will lower dose to 30mg SQ daily due to low body weight Increase activity as tolerated Continue PT OT Disposition: Improving, but continues to have oxygen requirements greater than 4 L with ambulation, clinically progressing. Continue to follow. Admission and Anticipated Discharge Date Admission Date: June 07, 2021 Subjective Patient feels she is still improving every day. Continues to cough short of breath on exertion. Eating a lot better today however as her family brought in a [employer]. Will discontinue glucose checks and insulin as I am much more concerned about her overall nutritional status. Review of Systems Review of Systems: All systems reviewed & are unremarkable except as noted in Subjective Physical Exam Constitutional: + cachectic and + frail appearing; + not well nourished Eyes: + anicteric sclerae; normal pupil size ENMT: external ear and nose normal, oropharynx normal Respiratory: normal respiratory effort Auscultation: + diminished lung sounds (throughout); no crackles and no wheezes Cardiovascular: RRR, no murmur, no edema Gastrointestinal (Abdomen): Percussion/Palpation: abdomen soft; abdomen nontender Skin: no rashes, warm and dry Neurologic: moves all extremities and awake; not confused Psychiatric: A+Ox3, euthymic affect Results & Data Results & Data ([facility]) Vital Signs (Past 12 Hours) Vital Signs Temp Pulse Resp BP BP Pulse Ox 06/13/21 15:48 114/76 06/13/21 15:45 36.2 C L 90 18 92/60 L 91 06/13/21 08:00 36.3 C L 72 20 142/74 H 90 PG Care Time/CCT Total # of Minutes Spent Total Time Spent with Patient: Total time spent is greater than 50% in coordination of care (as documented) at patient's floor/unit and/or counseling patient: Coding Level of Care Code 01283 Subseq Hosp Care Lvl 2 Diagnoses COVID-19 U07.1 Hypomagnesemia E83.42 Encephalopathy G93.40 Hypoxia R09.02 COPD (chronic obstructive pulmonary disease) J44.9 Hyperglycemia R73.9 Hypertension I10 Restless leg syndrome G25.81 Tobacco use disorder F17.200 Underweight R63.6 Severe protein-calorie malnutrition E43
--- NOTE | 2021-06-14 07:54 | XRay Report ---
XR chest 1V portable CLINICAL HISTORY: hypoxia. COMPARISON STUDY: 06/07/2021 TECHNIQUE: 1 view of the chest FINDINGS: Single frontal view of the chest demonstrates the cardiomediastinal silhouette to be within normal li mits. The lungs are clear of alveolar opacities. There is no evidence for pleural effusion. There is no evidence for vascular congestion. There is no acute osseous pathology. IMPRESSION: 1. No acute cardiopulmonary disease. ACT 112: Negative or not required by law. Electronically signed by: Lemuel Escobedo M.D. 06/14/2021 7:53 AM
[2021-06-14] MEDS: UMECLIDINIUM BROMIDE 62.5MCG/BLISTER 7 PUFFS/INHALER INH SCH (09:12)
[2021-06-14] MEDS: HEPARIN SOD 5,000 UNIT/0.5 ML VIAL SC SCH ×3 (09:12→22:32)
[2021-06-14] MEDS: NYSTATIN SUSP 500,000 U/5 ML UDC PO SCH ×4 (09:12→22:32)
[2021-06-14] MEDS: dexAMETHasone 6 MG in SYRINGE 0 ML IV SCH (09:18)
[2021-06-14] MEDS: CHOLECALCIFEROL 1,000 UNITS 25 MCG TAB PO SCH (09:19)
[2021-06-14] MEDS: MAGNESIUM OXIDE 400 MG TAB PO SCH (09:19)
[2021-06-14] MEDS: ASPIRIN 81 MG ECTAB PO SCH (09:19)
[2021-06-14] MEDS: guaiFENesin 600 MG TABCR PO SCH ×2 (09:19→22:32)
[2021-06-14] MEDS: FERROUS SULFATE 325 MG TAB PO SCH (09:19)
[2021-06-14] MEDS: METOPROLOL SUCC 50MG EXT REL TAB PO SCH (09:19)
--- NOTE | 2021-06-14 16:56 | Hospitalist Progress Note ---
Date of Service June 14, 2021 Assessment & Plan (1) COVID-19: Plan: 75-year-old female with a history of tobacco abuse since teenage years. Patient lives alone and is independent with ADLs. She is nonvaccinated. Patient developed sore throat and cough approximately 2 weeks ago. Over the last several days she has developed a productive cough with green sputum. Family is unaware of any fever or rigors. Patient did have chills at home. Patient was brought into the emergency department and found to be hypoxic in the 50s reportedly. She was started empirically on remdesivir, dexamethasone and supplemental oxygen. Currently she is in isolation for COVID-19. COVID-19 pneumoniaCXR negative CRP elevated to 10 Remains on 5 L nasal cannula, refuses BiPAP Continue dexamethasone 6 mg daily x10 days Continue remdesivir No additional Lasix indicated at this time SPO2 goal greater than 88% DNR/DNI Now on 5 L of oxygen with increased shortness of breath during ambulation. Remdesivir completed. PT OT saw, recommended potential return home versus acute rehab and noted was able to ambulate 65 feet without an AD at supervision level and steady gait. Continues to have a oxygen requirement above 5 L at rest and worsened with exertion, no worsening today. Feeling better but O2 requirement has been stable. Prior provider discussed with her family who report they can help care for her and will have 24-hour care when she returns home and reports she will likely refuse rehab, but like a conservative approach with regards to hospice time spend day of discharge minutes including direct patient care, documentation, review of labs and images, and coordination of care. And oxygen levels - will repeat CRP in AM. (2) Hypomagnesemia: Plan: Improved with repletion (3) Encephalopathy: Plan: Patient received clonazepam on night of admission for RLS-caused severe lethargy for 12 hours-has since been discontinued CT head is negative Now encephalopathy completely resolved Continue regular diet (4) Hypoxia: Plan: Secondary to COPD exacerbation and COVID-19 Continue with supplemental oxygen to maintain SaO2 between 88 and 92% Continue to treat for COVID-19 with steroids Continue azithromycin, 5-day course started on admission to be complete 06/13 (5) COPD (chronic obstructive pulmonary disease): Plan: Lifelong adult smoker (current everyday smoker) No evidence of pulmonary function testing Patient is prescribed Spiriva Respimat 2 puffs daily as well as albuterol as needed as an outpatient Chest x-ray with evidence of emphysema Continue to treat for possible exacerbation with azithromycin and dexamethasone Maintain SaO2 between 88 and 92% (6) Hyperglycemia: Plan: No history of diabetes mellitus Hemoglobin A1c is 6.0% Discontinue further glucose checks and insulin due to minimal insulin requirement and more important to help with nutrition. (7) Hypertension: Plan: BPs controlled Continue home medication including metoprolol succinate 50 mg p.o. daily Also gave one-time dose of furosemide 20 mg IV as listed above in #1 Elevated BUN/creatinine ratio, creatinine stable, no rales on exam. Defer additional Lasix at this time (8) Restless leg syndrome: Plan: Avoid benzodiazepines Continue to monitor ferritin level low at 50 considering inflammatory state -start FeSO4 325mg po daily as Fe deficiency can be associated with RLS (9) Tobacco use disorder: Plan: encouraged cessation especially if she ends up going home onO2 (10) Underweight: Plan: BMI 15 encouraged Boost shakes likely due to living alone, heavy smoker and doesn't eat much (11) Severe protein-calorie malnutrition: Plan: as above Nutritional support Plan: VTE Prophylaxis - Lovenox but will lower dose to 30mg SQ daily due to low body weight Increase activity as tolerated Continue PT OT Disposition: Improving, but continues to have oxygen requirements greater than 4 L with ambulation, clinically progressing. Continue to follow. Admission and Anticipated Discharge Date Admission Date: June 07, 2021 Subjective Patient reports no new symptoms. She continues to feel better each day. She states she walked around with PT and tolerated it.. Review of Systems Review of Systems: All systems reviewed & are unremarkable except as noted in HPI & below Physical Exam Physical Exam: Constitutional: + cachectic and + frail appearing; + not well nourished Eyes: + anicteric sclerae; normal pupil size ENMT: external ear and nose normal, oropharynx normal Respiratory: normal respiratory effort Auscultation: + diminished lung sounds (throughout); no crackles and no wheezes Cardiovascular: RRR, no murmur, no edema Gastrointestinal (Abdomen): Percussion/Palpation: abdomen soft; abdomen nontender Skin: no rashes, warm and dry Neurologic: moves all extremities and awake; not confused Psychiatric: A+Ox3, euthymic affect Results & Data Results & Data ([place]) Vital Signs (Past 12 Hours) Vital Signs Temp Pulse Resp BP Pulse Ox 06/14/21 07:57 36.5 C 67 18 145/79 H 91 PG Care Time/CCT Total # of Minutes Spent Total Time Spent with Patient: Total time spent is greater than 50% in coordination of care (as documented) at patient's floor/unit and/or counseling patient: Coding Level of Care Code 46020 Subseq Hosp Care Lvl 2 Diagnoses COVID-19 U07.1 Hypomagnesemia E83.42 Encephalopathy G93.40 Hypoxia R09.02 COPD (chronic obstructive pulmonary disease) J44.9 Hyperglycemia R73.9 Hypertension I10 Restless leg syndrome G25.81 Tobacco use disorder F17.200 Underweight R63.6 Severe protein-calorie malnutrition E43
[2021-06-15] MEDS: MAGNESIUM OXIDE 400 MG TAB PO SCH (08:41)
[2021-06-15] MEDS: ASPIRIN 81 MG ECTAB PO SCH (08:41)
[2021-06-15] MEDS: dexAMETHasone 6 MG in SYRINGE 0 ML IV SCH (08:41)
[2021-06-15] MEDS: FERROUS SULFATE 325 MG TAB PO SCH (08:41)
[2021-06-15] MEDS: METOPROLOL SUCC 50MG EXT REL TAB PO SCH (08:42)
[2021-06-15] MEDS: NYSTATIN SUSP 500,000 U/5 ML UDC PO SCH ×4 (08:42→20:37)
[2021-06-15] MEDS: CHOLECALCIFEROL 1,000 UNITS 25 MCG TAB PO SCH (08:42)
[2021-06-15] MEDS: guaiFENesin 600 MG TABCR PO SCH ×2 (08:42→20:37)
[2021-06-15] MEDS: HEPARIN SOD 5,000 UNIT/0.5 ML VIAL SC SCH ×3 (08:43→20:39)
[2021-06-15] MEDS: UMECLIDINIUM BROMIDE 62.5MCG/BLISTER 7 PUFFS/INHALER INH SCH (08:43)
[2021-06-15 09:08] LABS: Hematocrit (blood only) 49.7 % (37-47); Hemoglobin 15.8 g/dL (12.0-16.0); Mean Corpuscular Hemoglobin 31.7 pg (25-34); Mean Corpuscular Hgb Conc 31.8 g/dL (32-36); Mean Corpuscular Volume 99.6 fL (80-100); Mean Platelet Volume 9.6 fL (7.4-10.4); Platelet Count 411 K/uL (130-400); RDW Coefficient of Variation 14.2 % (11.5-14.5); RDW Standard Deviation 51.5 fL (36.4-46.3); Red Blood Count 4.99 M/uL (4.2-5.4); White Blood Count 19.26 K/uL (4.8-10.8)
[2021-06-15 09:48] LABS: BUN Creatinine Ratio 41.7 (10-20); C Reactive Protein 1.24 mg/dl (0-0.5); Calcium 10.4 mg/dl (8.5-10.1); Creatinine Clr Calc Pharmacy 44.2 ml/min; Est GFR (African American) 94.9 ml/min; Est GFR (Non-African American) 81.9 ml/min; Potassium 4.2 mmol/L (3.5-5.1)
--- NOTE | 2021-06-15 20:43 | Hospitalist Progress Note ---
Date of Service June 15, 2021 Assessment & Plan (1) COVID-19: Plan: 75-year-old female with a history of tobacco abuse since teenage years. Patient lives alone and is independent with ADLs. She is nonvaccinated. Patient developed sore throat and cough approximately 2 weeks ago. Over the last several days she has developed a productive cough with green sputum. Family is unaware of any fever or rigors. Patient did have chills at home. Patient was brought into the emergency department and found to be hypoxic in the 50s reportedly. She was started empirically on remdesivir, dexamethasone and supplemental oxygen. Currently she is in isolation for COVID-19. COVID-19 pneumoniaCXR negative CRP elevated but improved from 10 to 1 Continue dexamethasone 6 mg daily x10 days Completed remdesivir No additional Lasix indicated at this time SPO2 goal greater than 88% DNR/DNI Now on 3 L of oxygen with increased shortness of breath during ambulation. Remdesivir completed. PT OT saw, recommended potential return home versus acute rehab and noted was able to ambulate 65 feet without an AD at supervision level and steady gait. Continues to have a oxygen requirement above 3 L at rest and worsened with exertion, no worsening today. Feeling jacob Prior provider discussed with her family who report they can help care for her and will have 24-hour care when she returns home and reports she will likely refuse rehab, but like a conservative approach with regards to hospice time spend day of discharge minutes including direct patient care, documentation, review of labs and images, and coordination of care. And oxygen levels - will discharge in AM, if continues to be stable (2) Hypomagnesemia: Plan: Improved with repletion (3) Encephalopathy: Plan: Patient received clonazepam on night of admission for RLS-caused severe lethargy for 12 hours-has since been discontinued CT head is negative Now encephalopathy completely resolved Continue regular diet (4) Hypoxia: Plan: Secondary to COPD exacerbation and COVID-19 Continue with supplemental oxygen to maintain SaO2 between 88 and 92% Continue to treat for COVID-19 with steroids Continue azithromycin, 5-day course started on admission to be complete 06/13 (5) COPD (chronic obstructive pulmonary disease): Plan: Lifelong adult smoker (current everyday smoker) No evidence of pulmonary function testing Patient is prescribed Spiriva Respimat 2 puffs daily as well as albuterol as needed as an outpatient Chest x-ray with evidence of emphysema Continue to treat for possible exacerbation with azithromycin and dexamethasone Maintain SaO2 between 88 and 92% (6) Hyperglycemia: Plan: No history of diabetes mellitus Hemoglobin A1c is 6.0% Discontinue further glucose checks and insulin due to minimal insulin requirement and more important to help with nutrition. (7) Hypertension: Plan: BPs controlled Continue home medication including metoprolol succinate 50 mg p.o. daily Also gave one-time dose of furosemide 20 mg IV as listed above in #1 Elevated BUN/creatinine ratio, creatinine stable, no rales on exam. Defer additional Lasix at this time (8) Restless leg syndrome: Plan: Avoid benzodiazepines Continue to monitor ferritin level low at 50 considering inflammatory state -start FeSO4 325mg po daily as Fe deficiency can be associated with RLS (9) Tobacco use disorder: Plan: encouraged cessation especially if she ends up going home onO2 (10) Underweight: Plan: BMI 15 encouraged Boost shakes likely due to living alone, heavy smoker and doesn't eat much (11) Severe protein-calorie malnutrition: Plan: as above Nutritional support Plan: VTE Prophylaxis - Lovenox but will lower dose to 30mg SQ daily due to low body weight Increase activity as tolerated Continue PT OT Disposition: Improving, but continues to have oxygen requirements greater than 4 L with ambulation, clinically progressing. Continue to follow. Admission and Anticipated Discharge Date Admission Date: June 07, 2021 Subjective Patient reports no new symptoms. She continues to feel better each day. Review of Systems Review of Systems: All systems reviewed & are unremarkable except as noted in HPI & below Physical Exam Physical Exam: Constitutional: + cachectic and + frail appearing; + not well nourished Eyes: + anicteric sclerae; normal pupil size ENMT: external ear and nose normal, oropharynx normal Respiratory: normal respiratory effort Auscultation: + diminished lung sounds (throughout); no crackles and no wheezes Cardiovascular: RRR, no murmur, no edema Gastrointestinal (Abdomen): Percussion/Palpation: abdomen soft; abdomen nontender Skin: no rashes, warm and dry Neurologic: moves all extremities and awake; not confused Psychiatric: A+Ox3, euthymic affect Results & Data Results & Data ([facility]) Vital Signs (Past 12 Hours) Vital Signs Temp Pulse Pulse Pulse Pulse Pulse Resp 06/15/21 18:00 36.5 C 84 18 06/15/21 13:15 97 H 97 H 97 H 83 06/15/21 08:57 Resp Resp Resp BP Pulse Ox Pulse Ox Pulse Ox 06/15/21 18:00 114/63 92 06/15/21 13:15 24 22 91 89 L 06/15/21 08:57 92 Pulse Ox Pulse Ox 06/15/21 18:00 06/15/21 13:15 93 86 L 06/15/21 08:57 PG Care Time/CCT Total # of Minutes Spent Total Time Spent with Patient: Total time spent is greater than 50% in coordination of care (as documented) at patient's floor/unit and/or counseling patient: Coding Level of Care Code 95745 Subseq Hosp Care Lvl 2 Diagnoses COVID-19 U07.1 Hypomagnesemia E83.42 Encephalopathy G93.40 Hypoxia R09.02 COPD (chronic obstructive pulmonary disease) J44.9 Hyperglycemia R73.9 Hypertension I10 Restless leg syndrome G25.81 Tobacco use disorder F17.200 Underweight R63.6 Severe protein-calorie malnutrition E43
[2021-06-16] MEDS: UMECLIDINIUM BROMIDE 62.5MCG/BLISTER 7 PUFFS/INHALER INH SCH (08:18)
[2021-06-16] MEDS: guaiFENesin 600 MG TABCR PO SCH (08:19)
[2021-06-16] MEDS: CHOLECALCIFEROL 1,000 UNITS 25 MCG TAB PO SCH (08:19)
[2021-06-16] MEDS: FERROUS SULFATE 325 MG TAB PO SCH (08:19)
[2021-06-16] MEDS: NYSTATIN SUSP 500,000 U/5 ML UDC PO SCH ×2 (08:19→12:01)
[2021-06-16] MEDS: MAGNESIUM OXIDE 400 MG TAB PO SCH (08:19)
[2021-06-16] MEDS: METOPROLOL SUCC 50MG EXT REL TAB PO SCH (08:19)
[2021-06-16] MEDS: HEPARIN SOD 5,000 UNIT/0.5 ML VIAL SC SCH (08:19)
[2021-06-16] MEDS: dexAMETHasone 6 MG in SYRINGE 0 ML IV SCH (08:19)
[2021-06-16] MEDS: ASPIRIN 81 MG ECTAB PO SCH (08:19)
--- NOTE | 2021-06-20 20:31 | Discharge Summary ---
Date of Service June 16, 2021 Admission HPI Per Admitting Provider The patient is a 75-year-old female with a past medical history including COPD, restless leg syndrome and hypertension, who presents with symptoms as noted above. She continues to smoke about 1 pack daily. She reports that her less restless legs is bothering her significantly more at this time as well Evaluation in the emergency department revealed a pulse ox in the mid 80s, improved to 93% on 2 L nasal cannula. Chest x-ray was normal. COVID-19 testing was positive. Patient received from the ED the following: Dexamethasone 10 mg IV, NSS 500 mL bolus, guaifenesin 600 mg p.o., DuoNeb x1, and magnesium 1 g IV. Principal Diagnosis COVID 19 Discharge Exam Constitutional: + cachectic and + frail appearing; + not well nourished Eyes: + anicteric sclerae; normal pupil size ENMT: external ear and nose normal, oropharynx normal Respiratory: normal respiratory effort Auscultation: + diminished lung sounds (throughout); no crackles and no wheezes Cardiovascular: RRR, no murmur, no edema Gastrointestinal (Abdomen): Percussion/Palpation: abdomen soft; abdomen nontender Skin: no rashes, warm and dry Neurologic: moves all extremities and awake; not confused Psychiatric: A+Ox3, euthymic affect Discharge Data Allergies Allergy/AdvReac Type Severity Reaction Status Date / Time No Known Allergies Allergy Verified 06/07/21 21:25 Consultations 06/07/21 22:27 ED Decision to Admit Stat Ordered Studies 06/07/21 20:53 CT head/brain wo con Urgent 06/08/21 01:34 US arterial duplex LE RT Routine Hospital Course (1) COVID-19: 75-year-old female with a history of tobacco abuse since teenage years. Patient lives alone and is independent with ADLs. She is nonvaccinated. Patient developed sore throat and cough approximately 2 weeks ago. Over the last several days she has developed a productive cough with green sputum. Family is unaware of any fever or rigors. Patient did have chills at home. Patient was brought into the emergency department and found to be hypoxic in the 50s reportedly. She was started empirically on remdesivir, dexamethasone and supplemental oxygen. Currently she is in isolation for COVID-19. COVID-19 pneumoniaCXR negative CRP elevated but improved from 10 to 1 Continue dexamethasone 6 mg daily x10 days Completed remdesivir No additional Lasix indicated at this time SPO2 goal greater than 88% DNR/DNI Now on 3 L of oxygen with increased shortness of breath during ambulation. Remdesivir completed. PT OT saw, recommended potential return home versus acute rehab and noted was able to ambulate 65 feet without an AD at supervision level and steady gait. Continues to have a oxygen requirement above 3 L at rest and worsened with exertion, no worsening today. Feeling jacob Prior provider discussed with her family who report they can help care for her and will have 24-hour care when she returns home and reports she will likely refuse rehab, but like a conservative approach with regards to hospice time spend day of discharge minutes including direct patient care, documentation, review of labs and images, and coordination of care. And oxygen levels -patient remained stable and was discharged. Patient required 3 liters on exertion and 2 liters at rest. Will complete 10 days of dexamethasone at home. (2) Hypomagnesemia: Improved with repletion (3) Encephalopathy: Patient received clonazepam on night of admission for RLS-caused severe lethargy for 12 hours-has since been discontinued CT head is negative Now encephalopathy completely resolved Continue regular diet (4) Hypoxia: Secondary to COPD exacerbation and COVID-19 Continue with supplemental oxygen to maintain SaO2 between 88 and 92% Continue to treat for COVID-19 with steroids Continue azithromycin, 5-day course started on admission to be complete 06/13 (5) COPD (chronic obstructive pulmonary disease): Lifelong adult smoker (current everyday smoker) No evidence of pulmonary function testing Patient is prescribed Spiriva Respimat 2 puffs daily as well as albuterol as needed as an outpatient Chest x-ray with evidence of emphysema Continue to treat for possible exacerbation with azithromycin and dexamethasone Maintain SaO2 between 88 and 92% (6) Hyperglycemia: No history of diabetes mellitus Hemoglobin A1c is 6.0% Discontinue further glucose checks and insulin due to minimal insulin requirement and more important to help with nutrition. (7) Hypertension: BPs controlled Continue home medication including metoprolol succinate 50 mg p.o. daily Also gave one-time dose of furosemide 20 mg IV as listed above in #1 Elevated BUN/creatinine ratio, creatinine stable, no rales on exam. Defer additional Lasix at this time (8) Restless leg syndrome: Avoid benzodiazepines Continue to monitor ferritin level low at 50 considering inflammatory state -start FeSO4 325mg po daily as Fe deficiency can be associated with RLS (9) Tobacco use disorder: encouraged cessation especially if she ends up going home onO2 (10) Underweight: BMI 15 encouraged Boost shakes likely due to living alone, heavy smoker and doesn't eat much (11) Severe protein-calorie malnutrition: as above Nutritional support VTE Prophylaxis - Lovenox but will lower dose to 30mg SQ daily due to low body weight Increase activity as tolerated Continue PT OT Disposition: Improving, but continues to have oxygen requirements greater than 4 L with ambulation, clinically progressing. Continue to follow. Total Time Total Time Spent Total Time Spent (In Minutes): 32 Discharge Plan Discharge Items Patient Disposition: Home - Home Health Services Reason For Visit: COVID-19 PNEUMONIA, COPD EX, W/ HYPOXIA, ENCEPHALO Discharge Diagnosis: COVID 19 Pneumonia Activity: Resume your previous activity Non-emergency contact: Primary Care Provider Call non-emergency contact if: you have any medication questions Follow-up/Referrals: Mima Hebert [Primary Care Provider] - (PLEASE CALL YOUR PRIMARY CARE PROVIDER TO SCHEDULE A DISCHARGE FOLLOW-UP APPOINTMENT WITHIN 7-10 DAYS.) Diet: Regular Addtl Attending Provider Instructions: You have been hospitalized for an acute medical problem. During your stay at [facility], we have made an effort to correct the problem that brought you to the hospital while keeping you as comfortable as possible. Medications were used to bring your condition under control and your discharge instructions will include directions for any medications you should take after leaving the hospital. Please make sure you see your Primary Care Provider as part of your follow up plan. Pending Studies at Discharge: No Stand-Alone Forms: My [facility], Smoking Cessation Medications and DC Order Prescriptions: New nicotine 7 mg/24 hr Patch 24 Hour 14 mg transdermal QAM Qty: 30 RF: 0 guaifenesin [Mucinex] 600 mg Tablet Extended Release 12hr 1,200 mg PO Q12 Qty: 14 RF: 0 dexamethasone 6 mg tablet 6 mg PO DAILY Qty: 1 RF: 0 Continued calcium carbonate [Tums] 200 mg calcium (500 mg) Tablet,Chewable 200 - 400 mg PO DIRECTED PRN (Reason: HEARTBURN/INDIGESTION) RF: 0 albuterol sulfate [Ventolin HFA] 90 mcg/actuation Hfa Aerosol Inhaler 2 puff INHALATION DIRECTED PRN (Reason: Shortness Of Breath Or Wheezing) RF: 0 cholecalciferol (vitamin D3) [Vitamin D3] 25 mcg (1,000 unit) Capsule 1,000 mcg PO DAILY RF: 0 metoprolol succinate 50 mg tablet extended release 24 hr 50 mg PO DAILY RF: 0 aspirin 81 mg tablet,chewable 81 mg PO DAILY RF: 0 Spiriva Respimat 2.5 mcg/actuation mist 2 puff INHALATION DAILY RF: 0 Discharge Orders: Discharge Order (Routine); Ordered 06/16/21 Ordered By: Rl Ashford/Other Patient Handouts: A1C Admission Data Admit Date/Time: 06/07/21 23:51 Attending Provider: Rl Epps Admit Provider: Thony Marvin Primary Care Provider: Mima Hebert Other Providers: Thony Marvin ; Erik Velasquez [facility] Other Interventions: Discharge Summary Assessment (RN) Last Done: 06/16/21 15:26 Coding Level of Care Code D/C DAY MANAGEMENT >30 MINS Diagnoses COVID-19 U07.1 Hypomagnesemia E83.42 Encephalopathy G93.40 Hypoxia R09.02 COPD (chronic obstructive pulmonary disease) J44.9 Hyperglycemia R73.9 Hypertension I10 Restless leg syndrome G25.81 Tobacco use disorder F17.200 Underweight R63.6 Severe protein-calorie malnutrition E43 Time Spent (min) 32
== END 2021-06-16 16:36 | disposition home health service (06) | DRG 177 ==
LOC: ED 19:55 → EDINP 23:51 → SUATTDRO 23:51 → 2S 06-08 02:19 → 2W 06-09 14:03